=== PATIENT | male | born 1940 | race Caucasian/White ===

== ENCOUNTER 2017-05-11 21:01 | Observation (INO) | payer MEDICARE, OTHER, SELFPAY ==
[2017-05-11 21:02] VITALS: BP 134/78; PULSE 68; RESP 18; TEMP 36.8; O2SAT 93; BMI 25.5
--- NOTE | 2017-05-11 21:29 | EKG12_ITS ---
Test Reason : CP Blood Pressure : / mmHG Vent. Rate : 064 BPM Atrial Rate : 064 BPM P-R Int : 210 ms QRS Dur : 096 ms QT Int : 386 ms P-R-T Axes : 009 -07 038 degrees QTc Int : 398 ms Sinus rhythm with 1st degree A-V block with Premature atrial complexes in a pattern of bigeminy Otherwise normal ECG Confirmed by JEB DAVIS, DEEJAY ([id number]), editor farm journal MIRIAM TALBOT ([id number]) on 05/13/2017 1:27:33 PM Referred By: CHINA/KELLEY Confirmed By:DEEJAY RUSS MD
--- NOTE | 2017-05-11 21:30 | RAD_ITS ---
XR Chest 1 View INDICATION: Pains across upper chest but mostly in left arm. COMPARISON: None FINDINGS: Heart size and pulmonary vascularity are within normal limits. The lungs are clear without evidence of airspace consolidation or pleural effusion. The osseous structures are grossly unremarkable. RAD/Chest 1 View (Portable) IMPRESSION: No radiographic evidence of acute intrathoracic disease. at 2152 Reported and signed by: Emeli Wells MD Electronically Signed: Emeli Wells MD at 20:51 EDT Tel , Service support ,
--- NOTE | 2017-05-11 21:31 | ED.VISSUMM ---
- ER Visit Summary Date of Service: 05/11/17 Chief Complaint: Chest pain History of Present Illness: The patient is a 77 M presents with 2-3 hours of left-sided chest discomfort with radiation to his left shoulder blade, and down his left arm greater than his right arm. Started with light exertion, going down the steps to the basement to put wood in the boiler, and coming back up. However with rest it did not go away although he states over the past 2 hours it has been diminishing. He now just has some discomfort in his left shoulder and that is it, with resolution of the chest discomfort after taking 2 nitroglycerin doses at home. Already took his daily 81 mg aspirin. He had an LAD stent 10-15 years ago and has not had a recent stress test although he has a routine one scheduled for 9 days from today. He states that for the last 3 weeks he has been having bilateral upper chest burning and left shoulder tiredness when he does activity, and he seems to be fatiguing earlier in easier than usual. Physical Examination: Well-appearing in no acute distress. Blood pressure 134/78, 93% on room air, afebrile, not tachycardic. Chest nontender. Breath sounds equal bilaterally, lungs clear to auscultation throughout, heart is regular without a murmur or tachycardia. No JVD, pedal edema, or calf tenderness. Test Results: EKG shows nonspecific ST-T wave abnormalities in 3 and aVF, he has a rate of 64 with first-degree AV block with what is either a sinus arrhythmia or wandering pacemaker, but his relatively low voltage on the rhythm strip makes it difficult to tell. His axis is within normal limits and there is no ST segment elevation or depressions. Troponin negative, labs unremarkable except for elevated BUN at 30. Emergency Department Course and Treatment: Patient had a baby aspirin earlier, he was given another as well as nitroglycerin paste. On reevaluation his shoulder discomfort is gone, and his chest discomfort did not recur. Symptoms are very concerning for unstable angina in the last few weeks which has now become unstable. Discussed with Dr. Persaud for admission to telemetry and further evaluation. Patient is amenable to this. Disposition: Admit telemetry Impression: Chest pain, concern for unstable angina History coronary artery disease This note was generated with [employer] software. It may contain incorrect words, spelling, and punctuation that were not noted in review of the chart prior to signing ED Disposition - Plan for ED Patient: Disposition: Acute Care Hospital [facility] Chief Complaint: Chest Pain Referrals: Charles Agosto MD [Primary Care Provider] -
--- NOTE | 2017-05-11 21:36 | ED.DCSUM_ITS ---
- ER Visit Summary Date of Service: 05/11/17 Chief Complaint: Chest pain History of Present Illness: The patient is a 77 M presents with 2-3 hours of left-sided chest discomfort with radiation to his left shoulder blade, and down his left arm greater than his right arm. Started with light exertion, going down the steps to the basement to put wood in the boiler, and coming back up. However with rest it did not go away although he states over the past 2 hours it has been diminishing. He now just has some discomfort in his left shoulder and that is it, with resolution of the chest discomfort after taking 2 nitroglycerin doses at home. Already took his daily 81 mg aspirin. He had an LAD stent 10-15 years ago and has not had a recent stress test although he has a routine one scheduled for 9 days from today. He states that for the last 3 weeks he has been having bilateral upper chest burning and left shoulder tiredness when he does activity, and he seems to be fatiguing earlier in easier than usual. Physical Examination: Well-appearing in no acute distress. Blood pressure 134/ 78, 93% on room air, afebrile, not tachycardic. Chest nontender. Breath sounds equal bilaterally, lungs clear to auscultation throughout, heart is regular without a murmur or tachycardia. No JVD, pedal edema, or calf tenderness. Test Results: EKG shows nonspecific ST-T wave abnormalities in 3 and aVF, he has a rate of 64 with first-degree AV block with what is either a sinus arrhythmia or wandering pacemaker, but his relatively low voltage on the rhythm strip makes it difficult to tell. His axis is within normal limits and there is no ST segment elevation or depressions. Troponin negative, labs unremarkable except for elevated BUN at 30. Emergency Department Course and Treatment: Patient had a baby aspirin earlier, he was given another as well as nitroglycerin paste. On reevaluation his shoulder discomfort is gone, and his chest discomfort did not recur. Symptoms are very concerning for unstable angina in the last few weeks which has now become unstable. Discussed with Dr. Persaud for admission to telemetry and further evaluation. Patient is amenable to this. Disposition: Admit telemetry Impression: Chest pain, concern for unstable angina History coronary artery disease This note was generated with [employer] software. It may contain incorrect words, spelling, and punctuation that were not noted in review of the chart prior to signing ED Disposition - Plan for ED Patient: Disposition: Acute Care Hospital [facility] Chief Complaint: Chest Pain Referrals: Charles Agosto MD [Primary Care Provider] -
[2017-05-11] MEDS: Aspirin 81 MG TAB.CHEW PO (21:38)
[2017-05-11] MEDS: 0.9% Normal Saline 1,000 ML 150 ML IV (21:38)
[2017-05-11 21:40] VITALS: BP 130/70; PULSE 71
[2017-05-11] MEDS: Nitroglycerin Oint 1 INCH PACKET 0.5 INCH TRANSDERM. (21:40)
[2017-05-11 21:43] LABS: Absolute Lymphocyte Count 2.05 X10^3/ul (0.83-4.51); Basophil# 0.01 X10^3/uL; Basophil% 0.1 % (0-1); Eosinophil# 0.15 X10^3/uL; Eosinophils% 2.2 % (0-5); Hematocrit 39.7 % (40-54); Hemoglobin 13.5 g/dl (13.0-16.5); Lymphocyte # 2.05 X10^3/ul (4.0); Lymphocyte % 29.6 % (19-41); Mean Corpuscular Hgb 28.8 pg (27.0-32.0); Mean Corpuscular Volume 84.8 fL (80-94); Mean Platelet Vol. 10.1 fl (6.2-12.0); Monocyte% 10.1 % (0-10); Neutrophil # 3.99 X10^3/uL (2.7-7.7); Neutrophil % 57.7 % (47-70); Platelet Count 217 K/mm3 (150-450); RBC Distribution Width CV 13.4 % (11.6-14.6); RBC Distribution Width SD 40.7 fl (35.1-43.9); Red Blood Count 4.68 M/mm3 (4.6-6.2); White Blood Count 6.9 K/mm3 (4.4-11.0)
[2017-05-11 21:45] LABS: POSITIVE COUNT NO; POSITIVE DIFFERENTIAL NO; POSITIVE MORPHOLOGY NO
[2017-05-11 21:57] LABS: Partial Thromboplast Time 27.7 Seconds (24.1-36.2)
[2017-05-11 22:17] LABS: Anion Gap 10 (5-15); BUN 30 mg/dL (7-18); BUN/Creat Ratio 23.8 RATIO (10-20); Chloride 106 mmol/L (98-107); Creatinine, Serum 1.26 mg/dL (0.70-1.30); EST Glomerular Filtration Rate 59 mL/min (>60); Est Glom Filt Rate - Afr Amer 72 mL/min (>60); Estimated Creatinine Clearance 60.54 ml/min; Glucose 178 mg/dL (74-106); Sodium Level 144 mmol/L (136-145)
[2017-05-11 22:21] VITALS: BP 122/69; PULSE 65; RESP 16; O2SAT 96
[2017-05-11 22:35] VITALS: BP 127/91; PULSE 68; RESP 19; O2SAT 96
[2017-05-11 23:23] VITALS: BP 130/69; PULSE 61; RESP 18; O2SAT 97
--- NOTE | 2017-05-11 23:39 | PCM.HP.STD ---
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 Pt c/o generalized upper chest discomfort. Pt had several episode of chest pain in the past few days to weeks as well. However this time, he had the chest pressure localized to the left side of his chest, lasting for hours. Pressure came on suddenly as he walked up the stairs. Nothing made it better or worse. No association with any other symptoms. No diaphoresis or palpitation. Pain was initially moderate but improved over the next 2 hours. He was scheduled for a stress test in 1-2 weeks. He gets easily fatigue and had left shoulder tiredness when he does activity. He came to the ED for further workup. Past Medical History Past Medical History (Chronic Problems): Chronic Problems (Last Updated 05/06/17 @ 10:40 by Danay Justice) Presence of stent in coronary artery (Chronic) PTCA of LAD 04/1993; PTCA/DION to prox LAD 05/30/04 Atherosclerotic heart disease of [place] coronary artery without angina pectoris (Chronic) PTCA of LAD 04/1993; PTCA/DION to prox LAD 05/30/04 Hyperlipidemia (Chronic) Type 2 diabetes mellitus (Chronic) Allergies cephalexin Allergy (Severe, Verified 05/11/17 21:05) Hives penicillin G Allergy (Severe, Verified 05/11/17 21:05) Hives ramipril [From Altace] Allergy (Severe, Verified 05/11/17 21:05) Dry Cough Home Medications: Ambulatory Orders Medication Instructions Recorded aspirin 81 mg tablet,delayed 81 mg PO QDAY tab 05/06/17 release clopidogrel 75 mg tablet 75 mg PO QDAY 05/06/17 colchicine 0.6 mg tablet 0.6 mg PO QDAY PRN 05/06/17 fenofibric acid (choline) 135 mg 135 mg PO QDAY 05/06/17 capsule,delayed release finasteride 5 mg tablet 5 mg PO QDAY 05/06/17 melatonin 3 mg tablet 3 mg PO HS PRN 05/06/17 metformin 1,000 mg tablet 1,000 mg PO BID 05/06/17 metoprolol succinate ER 50 mg 50 mg PO QDAY tab 05/06/17 tablet,extended release 24 hr nitroglycerin 400 mcg/spray 1 spray TRANSLINGUAL Q5M PRN 05/06/17 translingual rosuvastatin 10 mg tablet 10 mg PO QDAY 05/06/17 sitagliptin 100 mg tablet 100 mg PO QDAY 05/06/17 Glimepiride [Amaryl] 4 mg PO DAILY 05/11/17 Pantoprazole Sodium 40 mg PO DAILY 05/11/17 Surgical History: - - S/p LAD stent Lives: Spouse/ Significant Other Smoking Status: Former smoker Alcohol: None Drugs: None - *Family History Maternal History Items: No pertinent history Review of Systems Constitutional: Denies: Chills, Fever, Weight Change HEENT: Denies: Head Aches, Sinus Congestion, Sinus Drainage Cardiovascular: Reports: Chest Pain. Denies: Palpitations Respiratory: Denies: Cough, Shortness of breath at rest, Sputum production Gastrointestinal: Denies: Abdominal Pain, Nausea, Vomiting Genitourinary: Denies: Dysuria Musculoskeletal: Denies: Joint Pain, Joint Tenderness Skin: Denies: Rash, Wounds Neurological: Denies: Numbness, Tingling, Focal weakness Psychiatric: Denies: Anxiety, Depression, Homicidal Ideations, Suicidal Ideations Hematologic/ Lymphatic: Denies: Easy Bruising, Easy Bleeding VTE Information - Inpt Only VTE Present on Admission: No VTE Mechan Device Prophylaxis: SCD's VTE Pharm Prophylaxis ordered?: Yes Patient Problems: Active and Suspected Problems (Last Updated 05/06/17 @ 10:40 by Danay Justice) Chest pain (Acute) - Physical Exam General: Alert, Oriented x3, Cooperative HEENT: Atraumatic, PERRLA, EOMI, Normocephalic Neck: Supple, No JVD, Negative Carotid Bruits Lungs: Clear to auscultation, Normal air movement Cardiovascular: Regular rate, No murmurs Abdomen: Bowel Sounds Present, Soft, Non Tender Extremities: No edema, Capillary Refill Less than 3 Seconds Skin: No rashes, No breakdown Musculoskeletal: No Tenderness to Palpation of Joints or Extremities Neurological: Cranial nerves II-XII grossly intact Psych/Mental Status: Normal Affect, Appropriate Vital Signs Temp Pulse Resp BP Pulse Ox 98.2 F 61 18 130/69 H 97 05/11/17 21:02 05/11/17 23:23 05/11/17 23:23 05/11/17 23:23 05/11/17 23:23 Oxygen Flow Rate (L/min) 2 Oxygen Delivery Method Nasal Cannula Weight: 92.8 kg Body Mass Index (BMI) 25.5 Laboratory Tests Past 24 Hrs 05/11/17 05/11/17 05/11/17 21:00 21:00 21:00 WBC 6.9 RBC 4.68 Hgb 13.5 Hct 39.7 L MCV 84.8 MCH 28.8 MCHC 34.0 RDW 13.4 RDW Differential 40.7 Plt Count 217 MPV 10.1 Immature Gran % (Auto) 0.300 Neut % (Auto) 57.7 Lymph % (Auto) 29.6 Kimble % (Auto) 10.1 H Eos % (Auto) 2.2 Baso % (Auto) 0.1 Absolute Neuts (auto) 4.0 Absolute Lymphs (auto) 2.05 Total Counted Not Reportable APTT 27.7 Sodium 144 Potassium 4.0 Chloride 106 Carbon Dioxide 28.0 Anion Gap 10 BUN 30 H Creatinine 1.26 Estim Creat Clear Calc 60.54 Est GFR (MDRD) Af Amer 72 Est GFR (MDRD) Non-Af 59 L BUN/Creatinine Ratio 23.8 H Glucose 178 H Calcium 9.0 Troponin I < 0.02 Assessment/Plan Active and Suspected Problems (Last Updated 05/06/17 @ 10:40 by Danay Justice) Chest pain (Acute) 77 year old male w/ h/o CAD s/p stent, HTN, and DMII admitted for chest pain. 1) Chest pain: Heart score [address]-T wave changes in inferior leads. NO ST elevation or depression. Trops and chest xray negative. Will get serial trops. ECHO and stress test in AM. Will get lipid panel. Resume home meds. 2) HTN: SBP 130s. C/w home meds. Monitor. 3) DMII: Resume home meds. Monitor. 4) Prophylaxis: SCD / heparin.
[2017-05-12] VITALS (14 sets, daily range): BP systolic 113–141; BP diastolic 58–78; PULSE 47–70; RESP 18; TEMP 36.5–36.8; O2SAT 95–98; BMI 24.9
[2017-05-12] MEDS: Clopidogrel Bisulfate 75 MG Tablet PO ×2 (01:19→10:33)
[2017-05-12] MEDS: 0.9% Normal Saline 1,000 ML 100 ML IV (01:21)
[2017-05-12] MEDS: Fenofibrate 145 MG Tablet PO (01:30)
[2017-05-12] MEDS: Atorvastatin Calcium 20 MG Tablet PO (01:30)
[2017-05-12] MEDS: Aspirin E.C. 81 MG Tablet PO (05:32)
[2017-05-12 05:33] LABS: Absolute Lymphocyte Count 1.88 X10^3/ul (0.83-4.51); Absolute Neutrophil Count 3.1 X10^3/uL (2.0-7.7); Basophil# 0.02 X10^3/uL; Basophil% 0.3 % (0-1); Eosinophil# 0.14 X10^3/uL; Eosinophils% 2.4 % (0-5); Hematocrit 37.4 % (40-54); Hemoglobin 12.8 g/dl (13.0-16.5); Lymphocyte # 1.88 X10^3/ul (4.0); Lymphocyte % 32.6 % (19-41); Mean Corp Hgb Conc 34.2 g/gl (32-36); Mean Corpuscular Hgb 28.9 pg (27.0-32.0); Mean Corpuscular Volume 84.4 fL (80-94); Mean Platelet Vol. 9.8 fl (6.2-12.0); Monocyte# 0.57 X10^3/uL; Monocyte% 9.9 % (0-10); Neutrophil # 3.14 X10^3/uL (2.7-7.7); Neutrophil % 54.6 % (47-70); Platelet Count 174 K/mm3 (150-450); RBC Distribution Width CV 13.2 % (11.6-14.6); RBC Distribution Width SD 40.3 fl (35.1-43.9); Red Blood Count 4.43 M/mm3 (4.6-6.2); White Blood Count 5.8 K/mm3 (4.4-11.0)
[2017-05-12 05:40] LABS: POSITIVE COUNT NO; POSITIVE DIFFERENTIAL NO; POSITIVE MORPHOLOGY NO
[2017-05-12 05:51] LABS: ALB/GLOB Ratio 1.2 RATIO (0.9-2.4); AST(SGOT) 19 U/L (15-37); Alanine Aminotransfer ALT/SGPT 31 U/L (16-61); Albumin, Serum 3.5 g/dL (3.2-5.0); Alkaline Phosphatase 19 U/L (45-117); Anion Gap 8 (5-15); BUN 26 mg/dL (7-18); BUN/Creat Ratio 25.5 RATIO (10-20); Calcium,Total 8.3 mg/dL (8.5-10.1); Chloride 108 mmol/L (98-107); Cholesterol 100 mg/dL (200); Creatinine, Serum 1.02 mg/dL (0.70-1.30); EST Glomerular Filtration Rate 76 mL/min (>60); Est Glom Filt Rate - Afr Amer 92 mL/min (>60); Estimated Creatinine Clearance 74.79 ml/min; Globulin 2.9 g/dL (2.2-4.2); Glucose 93 mg/dL (74-106); High Density Lipoprotein 32 mg/dL; Magnesium 1.8 mg/dL (1.6-2.6); Potassium 4.1 mmol/L (3.5-5.1); Protein, Total 6.4 g/dL (6.4-8.2); Sodium Level 141 mmol/L (136-145); Thyroid Stim Hormone (TSH) 3.73 uIU/mL (0.358-3.74); Triglycerides 132 mg/dL; Very Low Density Lipoprotein 26 mg/dL (5-40)
[2017-05-12 05:53] LABS: International Normalized Ratio 1.1; Prothrombin Time (Protime)PT. 14.3 SECONDS (11.7-14.9)
[2017-05-12 05:54] LABS: Partial Thromboplast Time 27.5 Seconds (24.1-36.2)
--- NOTE | 2017-05-12 05:55 | ECHOD_ITS ---
Reason For Study: CHEST PAIN Procedure This was a 2D Doppler, Color Flow transthoracic echocardiogram. Exam performed portable in patient room. Left Ventricle Normal LV size. Left ventricular systolic function is normal. The estimated ejection fraction is 64 %. Transmitral diastolic flow velocities suggest mild (stage 1) diastolic dysfunction (reversed pattern). No regional wall motion abnormalities noted. Right Ventricle Normal RV size. Normal systolic function. Atria Normal left atrium. Normal right atrium. Mitral Valve Normal mitral valve. Tricuspid Valve Normal tricuspid valve. Mild (1+) tricuspid valve insufficiency. Pulmonary artery systolic pressure is 27 mmHg. Aortic Valve Normal aortic valve. Trisinus/trileaflet aortic valve. Pulmonic Valve Normal pulmonic valve. Great Vessels Normal aortic root. The pulmonary artery is normal size. Normal inferior vena cava. Pericardium/Pleural No pericardial effusion. MMode/2D Measurements & Calculations LVIDd: 5.1 cm IVSd: 0.93 cm Ao root diam: 3.9 cm LVIDs: 3.6 cm LVPWd: 1.1 cm LA dimension: 3.7 cm RVDd: 3.4 cm FS: 30.6 % LAV(MOD-sp4): 50.7 ml LA A4 area: 18.4 cm2 RA A4 area: 13.4 cm2 Doppler Measurements & Calculations MV E max yoni: 55.1 cm/sec Ao V2 max: 121.4 cm/sec LV V1 max: 120.7 cm/sec MV A max yoni: 73.8 cm/sec Ao max P.9 mmHg LV V1 max P.8 mmHg MV E/A: 0.75 PA V2 max: 167.0 cm/sec TR max yoni: 235.2 cm/sec TR max P.1 mmHg Interpretation Summary Normal LV size. Left ventricular systolic function is normal. The estimated ejection fraction is 64 %. Transmitral diastolic flow velocities suggest mild (stage 1) diastolic dysfunction (reversed pattern). Mild (1+) tricuspid valve insufficiency. Ordering Physician: Gabriel Persadu Referring Physician: Charles Agosto Performed By: Trena Doran, RDCS, RVT
--- NOTE | 2017-05-12 05:55 | EKG12_ITS ---
Test Reason : AM EKG Blood Pressure : / mmHG Vent. Rate : 058 BPM Atrial Rate : 058 BPM P-R Int : 220 ms QRS Dur : 100 ms QT Int : 436 ms P-R-T Axes : 043 010 045 degrees QTc Int : 428 ms Sinus bradycardia with marked sinus arrhythmia with 1st degree A-V block Otherwise normal ECG When compared with ECG of 11-MAY-2017 21:04, MANUAL COMPARISON REQUIRED, DATA IS UNCONFIRMED Confirmed by JEB DAVIS, DEEJAY ([id number]), managing editor MIRIAM TALBOT ([id number]) on 05/13/2017 1:39:43 PM Referred By: CAROL Confirmed By:DEEJAY RUSS MD
[2017-05-12 07:01] LABS: Bedside Glucose 93 mg/dL (70-110)
--- NOTE | 2017-05-12 08:02 | RAD_ITS ---
STUDY: X-RAY CHEST REASON FOR EXAM: Male, 77 years old. chest pain hx of heart attack TECHNIQUE: Frontal and lateral views of the chest. COMPARISON: None. FINDINGS: The lungs are clear and expanded. There is no demonstrated pleural abnormality. Normal size heart. Normal mediastinum and latesha. Normal visualized pulmonary arteries. Normal visualized aortic arch and descending thoracic aorta. Normal visualized thoracic spine. There is degenerative osteoarthritis of the bilateral shoulders. There is no demonstrated abnormality of the visualized soft tissue structures of the upper abdomen. RAD/Chest PA and Lateral IMPRESSION: Normal x-ray examination of the chest. Electronically Signed: Franco Freed MD at 12:20 EDT Tel , Service support ,
--- NOTE | 2017-05-12 09:48 | STRESSREP_ITS ---
Stress Test Report Exercise myocardial perfusion stress test. 77-year-old man with a history of coronary artery disease and previous stenting. Stress protocol: Resting EKG demonstrates sinus bradycardia with a rate of 61 bpm resting blood pressure is 122/70 mmHg. Patient exercised according to the regular Tyler protocol for total duration of 7 minutes and 30 seconds patient completed 1 minute and 30 seconds to stage III of the Tyler protocol. The maximum heart rate attained was 123 bpm which was 84% of maximum predicted heart rate the maximum workload attained was 9.3 metabolic equivalents. At rest there were no ST or T-wave changes noted suggest ischemia at peak exercise there was approximately [address] depression noted in leads II, III and I 0.[address] depression noted in aVF. 1.[address] depression was noted in V5 and V6. Premature ventricular complexes were noted during exercise. The patient also complained of mild chest discomfort which appeared to dissipate at the termination of exercise. The resting blood pressure is 122/ 70 with a peak blood pressure 142/74 mmHg. Myocardial perfusion protocol. 11.8 mCi of technetium 99m sestamibi was injected at rest. The patient exercised according to regular Tyler protocol for total duration of 7 minutes and 30 seconds attaining 9.3 metabolic equivalents. At peak exercise 35.0 mCi of technetium 99m sestamibi was injected. Stress images were obtained stress and rest images were reconstructed and compared in the short axis vertical long and horizontal long axis. Gated images were also obtained. Perfusion SPECT analysis. Review of the stress images demonstrate a medium-sized defect noted involving the mid to distal anteroseptal and apical briceno. The inferior wall also demonstrates reduced perfusion on the stress images. The resting images demonstrate improvement in the inferior wall as well as the distal anterior septal and apical briceno. The lateral wall appears to well perfused on the stress and resting images. The above pattern is suggestive of anteroseptal ischemia as well as apical ischemia. Previous inferior infarct with ischemia can also not be excluded. Gated SPECT analysis. The gated ejection fraction is noted to be 54%. Conclusion: Abnormal exercise myocardial perfusion stress test with evidence of anterior septal, apical, inferior ischemia. Preserved ejection fraction. Clinical angina noted. Mild functional aerobic impairment.
[2017-05-12] MEDS: Metoprolol(XL)Succ 50 MG Tablet PO (09:55)
[2017-05-12] MEDS: LINAGLIPTIN 5 MG TABLET PO (09:56)
[2017-05-12] MEDS: Finasteride 5 MG Tablet PO (09:56)
[2017-05-12] MEDS: Pantoprazole Sodium 40 MG Tablet PO (09:57)
[2017-05-12] MEDS: 0.9% NaCl Peripheral Flush Adult/Peds IV (10:10)
--- NOTE | 2017-05-12 10:39 | PCM.CONS.C ---
Reason for Consult Date of Consultation: 05/12/17 Reason for Consultation: Chest pressure and abnormal stress test. History of Present Illness: The patient is a 77 year old M with a known history of coronary artery disease status post initial angioplasty in 1993 of the left anterior descending artery and subsequently in 2004 with placement of a 3.5 mm x 20 mm Taxus drug-eluting stent in the left anterior descending artery. He apparently had been doing well but has started experiencing some chest discomfort. He says that this would happen whenever he got on his treadmill. It was a burning sensation and also radiated down the left side of his arm. He presented to the emergency room for evaluation of the above he was admitted to the telemetry unit cardiac enzymes were obtained which were negative and he underwent stress testing today. During the stress testing he developed similar chest discomfort EKG changes were noted and the nuclear images demonstrate evidence of anterior septal and apical ischemia. A previous inferior infarct cannot be completely excluded with mild ischemia. Due to the above cardiovascular service was consulted for further evaluation and management. He has been compliant with his medications and currently is free of any chest pain. [] Past Medical History Allergies/Adverse Reactions: Allergies cephalexin Allergy (Severe, Verified 05/11/17 21:05) Hives penicillin G Allergy (Severe, Verified 05/11/17 21:05) Hives ramipril [From Altace] Allergy (Severe, Verified 05/11/17 21:05) Dry Cough Home Medications: Ambulatory Orders Medication Instructions Recorded aspirin 81 mg tablet,delayed 81 mg PO QDAY tab 05/06/17 release clopidogrel 75 mg tablet 75 mg PO QDAY 05/06/17 colchicine 0.6 mg tablet 0.6 mg PO QDAY PRN 05/06/17 fenofibric acid (choline) 135 mg 135 mg PO QDAY 05/06/17 capsule,delayed release finasteride 5 mg tablet 5 mg PO QDAY 05/06/17 melatonin 3 mg tablet 3 mg PO HS PRN 05/06/17 metformin 1,000 mg tablet 1,000 mg PO BID 05/06/17 metoprolol succinate ER 50 mg 50 mg PO QDAY tab 05/06/17 tablet,extended release 24 hr nitroglycerin 400 mcg/spray 1 spray TRANSLINGUAL Q5M PRN 05/06/17 translingual rosuvastatin 10 mg tablet 10 mg PO QDAY 05/06/17 sitagliptin 100 mg tablet 100 mg PO QDAY 05/06/17 Glimepiride [Amaryl] 4 mg PO DAILY 05/11/17 Pantoprazole Sodium 40 mg PO DAILY 05/11/17 Past Medical History (Chronic Problems): Chronic Problems (Last Updated 05/06/17 @ 10:40 by Danay Justice) Presence of stent in coronary artery (Chronic) PTCA of LAD 04/1993; PTCA/DION to prox LAD 05/30/04 Atherosclerotic heart disease of [place] coronary artery without angina pectoris (Chronic) PTCA of LAD 04/1993; PTCA/DION to prox LAD 05/30/04 Hyperlipidemia (Chronic) Type 2 diabetes mellitus (Chronic) Surgical History: - - S/p LAD stent - *Family History Maternal Family History: Family History (Last Updated 05/06/17 @ 10:41 by Danay Justice) Mother Hypertension Diabetes Sister CAD (coronary artery disease) History Items: No pertinent history Lives: Spouse/ Significant Other Smoking Status: Former smoker Alcohol: None Drugs: None Review of Systems - Review of Systems General: Denies: Fever, Night Sweats, Fatigue Cardiovascular: Reports: Chest Discomfort with Exertion, Chest Tightness. Denies: Chest Discomfort, Shortness of Breath, Orthopnea, PND, Peripheral Edema, Palpitations, Lightheadedness, Dizziness, Near Syncope, Syncope Respiratory: Denies: Cough, Sputum Production, Hemoptysis Gastrointestinal: Denies: Hematemesis, Hematochezia, Melena Genitourinary: Denies: Dysuria, Hematuria Skin: Denies: Rash Subjectve: Pleasant gentleman in no apparent distress. Objective: Vital Signs Temp Pulse Resp BP Pulse Ox 97.7 F L 60 18 118/63 97 05/12/17 09:51 05/12/17 09:55 05/12/17 09:51 05/12/17 09:51 05/12/17 09:51 Oxygen Delivery Method Room Air Weight: 200 lb 9.93 oz Body Mass Index (BMI) 24.9 Intake and Output for Last 24 Hours 05/10/17 05/11/17 05/12/17 23:59 23:59 23:59 Intake Total 458 / 458 Balance 458 / 458 General: Awake, Alert, Oriented x 3 HEENT: PERRL, EOMI, Sclera Non Icteric Neck: Supple, Good ROM, No Lymph Node Enlargement Lungs: Clear to auscultation Cardiovascular: Regular Rhythm, Normal S1, Normal S2, No Murmurs, No Rubs, No Gallops Vascular: No Carotid Bruits, Normal Femoral Pulses, Normal Radial Pulses, Normal Dorsalis Pedal Pulse, Normal Posterior Tibial Pulses Abdomen: Bowel Sounds Present, Soft, Non Tender, No HSM, No Organomegaly Extremities: No Cyanosis, No Clubbing, No edema Neurological: No Focal Motor or Sensory Deficit 05/12/17 01:06: Troponin I < 0.02 05/12/17 05:00: WBC 5.8, RBC 4.43 L, Hgb 12.8 L, Hct 37.4 L, MCV 84.4, MCH 28.9, MCHC 34.2, RDW 13.2, RDW Differential 40.3, Plt Count 174, MPV 9.8, Immature Gran % (Auto) 0.200, Neut % (Auto) 54.6, Lymph % (Auto) 32.6, [place] % (Auto) 9.9, Eos % (Auto) 2.4, Baso % (Auto) 0.3, Absolute Neuts (auto) 3.1, Total Counted Not Reportable 05/12/17 05:00: Sodium 141, Potassium 4.1, Chloride 108 H, Carbon Dioxide 25.0, Anion Gap 8, BUN 26 H, Creatinine 1.02, Est GFR (MDRD) Af Amer 92, Est GFR (MDRD) Non-Af 76, BUN/Creatinine Ratio 25.5 H, Glucose 93, Calcium 8.3 L, Magnesium 1.8, Total Bilirubin 0.60, Troponin I < 0.02, Triglycerides 132, Cholesterol 100, LDL Cholesterol 42, VLDL Cholesterol 26, HDL Cholesterol 32 L 05/12/17 05:00: PT 14.3, INR 1.1, APTT 27.5 Rhythm: EKG: Normal sinus rhythm with no acute changes Assessment/Plan 1. New onset angina and abnormal stress test. He presents with recent onset angina and has demonstrated an abnormal stress test with evidence of ischemia noted in the anteroseptal and apical distribution correlating with his previous LAD stent placement. Does have known coronary artery disease as discussed above. My recommendation at this time will be for us to evaluate him with a cardiac catheterization. The risk benefits and alternatives have been explained to him and his they understand and agreed to proceed. He will remain on the aspirin and the Plavix in the meantime. 2. Hyperlipidemia. His lipid profile does not appear to be terribly bad he remains on his fenofibrate. It is not clear whether he has been taking his Crestor but this will be emphasized. He will continue with his weight loss and diabetes management. Thank you for allowing me to participate in the care of your patient. Please don't hesitate to call if any issues arise
--- NOTE | 2017-05-12 10:45 | CON.PCM_ITS ---
Reason for Consult Date of Consultation: 05/12/17 Reason for Consultation: Chest pressure and abnormal stress test. History of Present Illness: The patient is a 77 year old M with a known history of coronary artery disease status post initial angioplasty in 1993 of the left anterior descending artery and subsequently in 2004 with placement of a 3.5 mm x 20 mm Taxus drug-eluting stent in the left anterior descending artery. He apparently had been doing well but has started experiencing some chest discomfort. He says that this would happen whenever he got on his treadmill. It was a burning sensation and also radiated down the left side of his arm. He presented to the emergency room for evaluation of the above he was admitted to the telemetry unit cardiac enzymes were obtained which were negative and he underwent stress testing today. During the stress testing he developed similar chest discomfort EKG changes were noted and the nuclear images demonstrate evidence of anterior septal and apical ischemia. A previous inferior infarct cannot be completely excluded with mild ischemia. Due to the above cardiovascular service was consulted for further evaluation and management. He has been compliant with his medications and currently is free of any chest pain. [] Past Medical History Allergies/Adverse Reactions: Allergies cephalexin Allergy (Severe, Verified 05/11/17 21:05) Hives penicillin G Allergy (Severe, Verified 05/11/17 21:05) Hives ramipril [From Altace] Allergy (Severe, Verified 05/11/17 21:05) Dry Cough Home Medications: Ambulatory Orders Medication Instructions Recorded aspirin 81 mg tablet,delayed 81 mg PO QDAY tab 05/06/17 release clopidogrel 75 mg tablet 75 mg PO QDAY 05/06/17 colchicine 0.6 mg tablet 0.6 mg PO QDAY PRN 05/06/17 fenofibric acid (choline) 135 mg 135 mg PO QDAY 05/06/17 capsule,delayed release finasteride 5 mg tablet 5 mg PO QDAY 05/06/17 melatonin 3 mg tablet 3 mg PO HS PRN 05/06/17 metformin 1,000 mg tablet 1,000 mg PO BID 05/06/17 metoprolol succinate ER 50 mg 50 mg PO QDAY tab 05/06/17 tablet,extended release 24 hr nitroglycerin 400 mcg/spray 1 spray TRANSLINGUAL Q5M PRN 05/06/17 translingual rosuvastatin 10 mg tablet 10 mg PO QDAY 05/06/17 sitagliptin 100 mg tablet 100 mg PO QDAY 05/06/17 Glimepiride [Amaryl] 4 mg PO DAILY 05/11/17 Pantoprazole Sodium 40 mg PO DAILY 05/11/17 Past Medical History (Chronic Problems): Chronic Problems (Last Updated 05/06/17 @ 10:40 by Danay Justice) Presence of stent in coronary artery (Chronic) PTCA of LAD 04/1993; PTCA/DION to prox LAD 05/30/04 Atherosclerotic heart disease of [place] coronary artery without angina pectoris (Chronic) PTCA of LAD 04/1993; PTCA/DION to prox LAD 05/30/04 Hyperlipidemia (Chronic) Type 2 diabetes mellitus (Chronic) Surgical History: - - S/p LAD stent - *Family History Maternal Family History: Family History (Last Updated 05/06/17 @ 10:41 by Danay Justice) Mother Hypertension Diabetes Sister CAD (coronary artery disease) History Items: No pertinent history Lives: Spouse/ Significant Other Smoking Status: Former smoker Alcohol: None Drugs: None Review of Systems - Review of Systems General: Denies: Fever, Night Sweats, Fatigue Cardiovascular: Reports: Chest Discomfort with Exertion, Chest Tightness. Denies: Chest Discomfort, Shortness of Breath, Orthopnea, PND, Peripheral Edema , Palpitations, Lightheadedness, Dizziness, Near Syncope, Syncope Respiratory: Denies: Cough, Sputum Production, Hemoptysis Gastrointestinal: Denies: Hematemesis, Hematochezia, Melena Genitourinary: Denies: Dysuria, Hematuria Skin: Denies: Rash Subjectve: Pleasant gentleman in no apparent distress. Objective: Vital Signs Temp Pulse Resp BP Pulse Ox 97.7 F L 60 18 118/63 97 05/12/17 09:51 05/12/17 09:55 05/12/17 09:51 05/12/17 09:51 05/12/17 09:51 Oxygen Delivery Method Room Air Weight: 200 lb 9.93 oz Body Mass Index (BMI) 24.9 Intake and Output for Last 24 Hours 05/10/17 05/11/17 05/12/17 23:59 23:59 23:59 Intake Total 458 / 458 Balance 458 / 458 General: Awake, Alert, Oriented x 3 HEENT: PERRL, EOMI, Sclera Non Icteric Neck: Supple, Good ROM, No Lymph Node Enlargement Lungs: Clear to auscultation Cardiovascular: Regular Rhythm, Normal S1, Normal S2, No Murmurs, No Rubs, No Gallops Vascular: No Carotid Bruits, Normal Femoral Pulses, Normal Radial Pulses, Normal Dorsalis Pedal Pulse, Normal Posterior Tibial Pulses Abdomen: Bowel Sounds Present, Soft, Non Tender, No HSM, No Organomegaly Extremities: No Cyanosis, No Clubbing, No edema Neurological: No Focal Motor or Sensory Deficit 05/12/17 01:06: Troponin I < 0.02 05/12/17 05:00: WBC 5.8, RBC 4.43 L, Hgb 12.8 L, Hct 37.4 L, MCV 84.4, MCH 28.9 , MCHC 34.2, RDW 13.2, RDW Differential 40.3, Plt Count 174, MPV 9.8, Immature Gran % (Auto) 0.200, Neut % (Auto) 54.6, Lymph % (Auto) 32.6, [place] % (Auto) 9.9 , Eos % (Auto) 2.4, Baso % (Auto) 0.3, Absolute Neuts (auto) 3.1, Total Counted Not Reportable 05/12/17 05:00: Sodium 141, Potassium 4.1, Chloride 108 H, Carbon Dioxide 25.0, Anion Gap 8, BUN 26 H, Creatinine 1.02, Est GFR (MDRD) Af Amer 92, Est GFR (MDRD ) Non-Af 76, BUN/Creatinine Ratio 25.5 H, Glucose 93, Calcium 8.3 L, Magnesium 1.8, Total Bilirubin 0.60, Troponin I < 0.02, Triglycerides 132, Cholesterol 100 , LDL Cholesterol 42, VLDL Cholesterol 26, HDL Cholesterol 32 L 05/12/17 05:00: PT 14.3, INR 1.1, APTT 27.5 Rhythm: EKG: Normal sinus rhythm with no acute changes Assessment/Plan 1. New onset angina and abnormal stress test. He presents with recent onset angina and has demonstrated an abnormal stress test with evidence of ischemia noted in the anteroseptal and apical distribution correlating with his previous LAD stent placement. Does have known coronary artery disease as discussed above. My recommendation at this time will be for us to evaluate him with a cardiac catheterization. The risk benefits and alternatives have been explained to him and his they understand and agreed to proceed. He will remain on the aspirin and the Plavix in the meantime. 2. Hyperlipidemia. His lipid profile does not appear to be terribly bad he remains on his fenofibrate. It is not clear whether he has been taking his Crestor but this will be emphasized. He will continue with his weight loss and diabetes management. Thank you for allowing me to participate in the care of your patient. Please don't hesitate to call if any issues arise
[2017-05-12 12:05] LABS: Bedside Glucose 146 mg/dL (70-110)
--- NOTE | 2017-05-12 12:55 | PCM.PN.BLA ---
Progress Note Patient seen and evaluated and underwent a cardiac catheterization today which demonstrated the following: Left main coronary artery which is normal. Left anterior descending artery with proximal 70% stenosis prior to a previously placed stent with 40-50% in-stent stenosis. Mid left anterior descending artery which appears to be subtotally occluded and distal left anterior descending artery with 90% stenosis. Left circumflex artery with severe proximal 70-80% diffuse disease prior to trifurcation. Dominant right coronary artery with 50-60% mid stenosis. Distal 70-80% posterior descending artery stenosis. Preserved left ventricular systolic function. In view of the fact that the patient is a diabetic with triple-vessel disease I would recommend coronary artery bypass surgery. Arrangements will be made to transfer the patient.
--- NOTE | 2017-05-12 13:06 | CL.D_ITS ---
Patient Name: ROBERTO POWELL Study Date: 05/12/2017 Performing: Beny Bansal MD Ht: 75 inches 191 cm : 1940 Wt: 200.9 lbs 91 kg Age: 77 Gender: male BSA: 2.2 PROCEDURE(S) PERFORMED [id number] CLINICAL PROFILE AND INDICATIONS INDICATIONS: Suspected CAD HEART FAILURE: None Stress/Imaging Stress Test w/SPECT MPI: Yes Result: Positive Intermediate RiskStress Test with SP ECT MPI: Positive Intermediate Risk Angina Classification Anginal Classification w/in 2 Weeks: CCS II CAD Presentations: Unstable angina. CONCLUSIONS Severe two-vessel disease involving the proximal left anterior descending artery, proximal circumflex artery, mid left anterior descending artery, and moderate disease of the mid right coronary artery. RECOMMENDATIONS Surgery consult for coronary revascularization DESCRIPTION OF PROCEDURE The patient arrived to the procedure lab. The risks and benefits of the procedure as well as a full d escription of our services here and current unavailability of surgical backup were fully explained to the patient and/or their significant other prior to the catheterization. The Timeout was completed, verifying the correct patient and procedure. The patient's procedural site was prepped and draped in the usual fashion. Local anesthetic was given subcutaneously to right radial region with Lidocaine 2% . Using a modified Seldinger technique, arterial access was obtained via the right radial artery, a 6 Fr sheath was inserted. Left Coronary Artery selective angiography was performed in multiple views u sing a 5 Fr. 4.0 [place] catheter. Right Coronary Artery selective angiography was then performed in mu ltiple views using a 5 Fr. 4.0 [place] catheter. Left Ventriculography was performed in MENA projection using a 5 Fr. [place] catheter. LV to AO pullback pressures were then recorded.The arterial sheath wa s pulled and a TR Band was applied for hemostasis w/ 18ml air CORONARY ANGIOGRAPHY DOMINANCE: Right Dominant LEFT HEART ASSESSMENT Left Ventricular Ejection Fraction: by LV Gram 60 % Normal LV wall motion Normal Left Ventricular systolic function LEFT MAIN: Angiographically normal LEFT ANTERIOR DECENDING ARTERY: PROX LAD: 70 long % Stenosis, Previously placed stent has an instent 40 % restenosis MID LAD: Diffusely diseased up to 95 % DISTAL LAD: 90 % Stenosis CIRCUMFLEX ARTERY: PROX CIRC: Diffusely diseased up to 80% prior to the bifurcation of 2 obtuse marginal branches and an AV groove branch RIGHT CORONARY ARTERY: MID RCA: 60 % Stenosis COMPLICATIONS No Complications PROCEDURE MEDICATIONS Fentanyl 50 mcg IV Versed 1 mg IV Oxygen: 2 L/min via nasal cannula Heparin diluted in 23cc Heparinized saline. Patient given 10cc IA of this solution. 05/12/2017 12:13:2 0 Verapamil 2.5mg, Ntg 100mcgs, 2000 units of Heparin diluted in 23cc Heparinized saline. Patient give n 10cc IA of this solution. 05/12/2017 12:13:20 SUMMARY OF HEMODYNAMIC DATA Time AIR REST ECG 11:40:10 AO 101/62 (80) SA 12:14:50 LV 117/4, 10 12:23:50 LV 114/5, 11 12:23:57 LV 118/5, 16 12:25:31 LVp 119/3, 15 12:25:35 AOp 130/61 (89) 12:25:40 Signed By Beny Bansal MD On 05/12/2017 13:05:18 Beny Bansal MD
[2017-05-12] MEDS: metFORMIN HCl 1,000 MG Tablet 1000 MG PO (14:21)
[2017-05-12] MEDS: Glimepiride 4 MG Tablet PO (14:21)
--- NOTE | 2017-05-13 08:52 | PCM.DC.SUM ---
Discharge Date and Diagnosis Date of Admission: 05/11/17 Date of Discharge: 05/12/17 - Secondary Discharge Diagnosis Chronic Problems (Last Updated 05/06/17 @ 10:40 by Danay Justice) Presence of stent in coronary artery (Chronic) PTCA of LAD 04/1993; PTCA/DION to prox LAD 05/30/04 Atherosclerotic heart disease of [place] coronary artery without angina pectoris (Chronic) PTCA of LAD 04/1993; PTCA/DION to prox LAD 05/30/04 Hyperlipidemia (Chronic) Type 2 diabetes mellitus (Chronic) Hospital Course and Treatment Summary of Care Provided: The patient is a 77 year old M who presented with chest pain and rule out acute coronary syndrome with negative cardiac enzymes. He underwent a stress test that was positive for ischemia cardiology was consulted and Dr. Bansal performed a diagnostic left heart catheterization revealed triple-vessel disease. Was then transferred to [facility] for possible CABG. He was transferred in a stable condition. Discharge Diet: No Restrictions Home Medications: Medications to take at Discharge aspirin 81 mg tablet,delayed release 81 mg PO QDAY tab 05/06/17 clopidogrel 75 mg tablet 75 mg PO QDAY 05/06/17 colchicine 0.6 mg tablet 0.6 mg PO QDAY PRN 05/06/17 fenofibric acid (choline) 135 mg capsule,delayed release 135 mg PO QDAY 05/06/17 finasteride 5 mg tablet 5 mg PO QDAY 05/06/17 melatonin 3 mg tablet 3 mg PO HS PRN 05/06/17 metformin 1,000 mg tablet 1,000 mg PO BID 05/06/17 metoprolol succinate ER 50 mg tablet,extended release 24 hr 50 mg PO QDAY tab 05/06/17 nitroglycerin 400 mcg/spray translingual 1 spray TRANSLINGUAL Q5M PRN 05/06/17 rosuvastatin 10 mg tablet 10 mg PO QDAY 05/06/17 sitagliptin 100 mg tablet 100 mg PO QDAY 05/06/17 Glimepiride [Amaryl] 4 mg PO DAILY 05/11/17 Pantoprazole Sodium 40 mg PO DAILY 05/11/17 Primary Care Physician: Charles Agosto MD [Primary Care Provider] - Medical Necessity - Tobacco Use Smoking Status: Former smoker Meaningful Use Info Meaningful Use Diagnoses (Choose all that apply): None applicable Code Visit OBSV E&M: 73721 Observation care discharge
--- NOTE | 2017-05-13 08:55 | DS.PCM_ITS ---
Discharge Date and Diagnosis Date of Admission: 05/11/17 Date of Discharge: 05/12/17 - Secondary Discharge Diagnosis Chronic Problems (Last Updated 05/06/17 @ 10:40 by Danay Justice) Presence of stent in coronary artery (Chronic) PTCA of LAD 04/1993; PTCA/DION to prox LAD 05/30/04 Atherosclerotic heart disease of [place] coronary artery without angina pectoris (Chronic) PTCA of LAD 04/1993; PTCA/DION to prox LAD 05/30/04 Hyperlipidemia (Chronic) Type 2 diabetes mellitus (Chronic) Hospital Course and Treatment Summary of Care Provided: The patient is a 77 year old M who presented with chest pain and rule out acute coronary syndrome with negative cardiac enzymes. He underwent a stress test that was positive for ischemia cardiology was consulted and Dr. Bansal performed a diagnostic left heart catheterization revealed triple-vessel disease. Was then transferred to [facility] for possible CABG. He was transferred in a stable condition. Discharge Diet: No Restrictions Home Medications: Medications to take at Discharge aspirin 81 mg tablet,delayed release 81 mg PO QDAY tab 05/06/17 clopidogrel 75 mg tablet 75 mg PO QDAY 05/06/17 colchicine 0.6 mg tablet 0.6 mg PO QDAY PRN 05/06/17 fenofibric acid (choline) 135 mg capsule,delayed release 135 mg PO QDAY finasteride 5 mg tablet 5 mg PO QDAY 05/06/17 melatonin 3 mg tablet 3 mg PO HS PRN 05/06/17 metformin 1,000 mg tablet 1,000 mg PO BID 05/06/17 metoprolol succinate ER 50 mg tablet,extended release 24 hr 50 mg PO QDAY tab 05/06/17 nitroglycerin 400 mcg/spray translingual 1 spray TRANSLINGUAL Q5M PRN 05/06/17 rosuvastatin 10 mg tablet 10 mg PO QDAY 05/06/17 sitagliptin 100 mg tablet 100 mg PO QDAY 05/06/17 Glimepiride [Amaryl] 4 mg PO DAILY 05/11/17 Pantoprazole Sodium 40 mg PO DAILY 05/11/17 Primary Care Physician: Charles Agosto MD [Primary Care Provider] - Medical Necessity - Tobacco Use Smoking Status: Former smoker Meaningful Use Info Meaningful Use Diagnoses (Choose all that apply): None applicable Code Visit OBSV E&M: 36806 Observation care discharge
== END 2017-05-12 17:05 | disposition short-term general hospital (02) ==
LOC: ED 22:54 → PCU 23:38
PROVIDERS: Admitting Provider Internal Medicine; Emergency Provider Emergency Medicine; Family Provider Family Medicine; PCP Family Medicine; Visit Provider Internal Medicine
DX: I25.10 Atherosclerotic heart disease of native coronary artery without angina pectoris (principal); R94.39 Abnormal result of other cardiovascular function study; E11.9 Type 2 diabetes mellitus without complications; E78.5 Hyperlipidemia, unspecified; I25.2 Old myocardial infarction; Z79.899 Other long term (current) drug therapy; Z79.02 Long term (current) use of antithrombotics/antiplatelets; Z79.84 Long term (current) use of oral hypoglycemic drugs; Z79.82 Long term (current) use of aspirin; Z95.5 Presence of coronary angioplasty implant and graft; Z87.891 Personal history of nicotine dependence
CPT/HCPCS: 36415; 71045; 71046; 78452; 80048; 80053; 80061; 82962; 83735; 84443; 84484; 85025; 85610; 85730; 90471; 93005; 93017; 93306; 93458; 96360; 96361; 99152; 99153; 99218; 99285; A9500; J3010; J7030; Q9967; A4216; C1769; C1894; G0378; J2785

== ENCOUNTER 2017-06-08 09:39 | Emergency (ER) | payer MEDICARE, OTHER, SELFPAY ==
[2017-06-08 09:40] VITALS: BP 136/87; PULSE 87; RESP 18; TEMP 36.3; O2SAT 97; BMI 22.7
--- NOTE | 2017-06-08 09:57 | ED.VISSUMM ---
- ER Visit Summary Date of Service: 06/08/17 Chief Complaint: [] Unable to void urine since last night History of Present Illness: The patient is a 77 M [] history of recent CABG [address] [facility], he reports that since that procedure he had a Ordaz catheter in place removed 2 days postop did not go home with it, he has had intermittent urinary retention, he is status post prostate procedure 10 years ago for BPH he has intermittent urinary retention but now it is persisted and has been quite troubling to him since his surgery. His surgical status is stable he has had no fever no cough no chest pain the sternal incision is healing well he simply reports this morning he could not void he felt persistent pressure to void and he came in for evaluation he is stooling normally he has had no fever no cough no chest pain or shortness of breath Physical Examination: [] He is resting comfortably in no distress he prefers to walk his sternal incision is intact with no signs of infection his lungs are clear heart tones are normal abdomen soft nontender there is some pressure over the bladder upper lower extremities unremarkable again is walking around the room complain that he needs to void he wants a Ordaz catheter placed Test Results: [] Emergency Department Course and Treatment: [] Time Ordaz catheter will be placed screening labs urine urine culture, he does report he believes he placed on Flomax 1 week ago but it has not helped Catheter placed productive of 600 cc clear yellow urine, labs and UA generally unremarkable urine culture sent he is feeling much better discussed all the above with him discussed removing the catheter versus sending him home with catheter having follow-up with his urologist, he went to catheter in he will be started on Cipro for 3 days have explained to him the risk of infection the need to see urology in the next few days for further management return for change in symptoms he understands all the above and agrees and wants to go home he was also instructed on the use of a Ordaz leg bag and the need to make sure that the urine never refluxes back into his bladder, he understands Treatment Plan: [] Disposition: [] Home stable Impression: [] Acute urinary retention, status post CABG This note was generated with Birdboxation software. It may contain incorrect words, spelling, and punctuation that were not noted in review of the chart prior to signing ED Disposition - Plan for ED Patient: Chief Complaint: Complaint Referrals: Agosto,Charles, MD [Primary Care Provider] -
--- NOTE | 2017-06-08 10:00 | NURSING ---
NO LW OR POA
[2017-06-08 10:06] LABS: Absolute Lymphocyte Count 1.26 X10^3/ul (0.83-4.51); Absolute Neutrophil Count 4.2 X10^3/uL (2.0-7.7); Basophil# 0.03 X10^3/uL; Basophil% 0.5 % (0-1); Eosinophils% 3.2 % (0-5); Hematocrit 35.4 % (40-54); Hemoglobin 11.9 g/dl (13.0-16.5); Lymphocyte # 1.26 X10^3/ul (4.0); Lymphocyte % 20.3 % (19-41); Mean Corp Hgb Conc 33.6 g/gl (32-36); Mean Corpuscular Hgb 28.7 pg (27.0-32.0); Mean Corpuscular Volume 85.5 fL (80-94); Mean Platelet Vol. 8.6 fl (6.2-12.0); Monocyte# 0.48 X10^3/uL; Monocyte% 7.7 % (0-10); Neutrophil # 4.23 X10^3/uL (2.7-7.7); Neutrophil % 68.1 % (47-70); POSITIVE COUNT NO; POSITIVE DIFFERENTIAL NO; POSITIVE MORPHOLOGY NO; Platelet Count 408 K/mm3 (150-450); RBC Distribution Width CV 13.5 % (11.6-14.6); RBC Distribution Width SD 41.3 fl (35.1-43.9); Red Blood Count 4.14 M/mm3 (4.6-6.2); White Blood Count 6.2 K/mm3 (4.4-11.0)
[2017-06-08 10:20] LABS: Bacteria 0 SEEN /hpf (None Seen); Mucous, Urine 0 SEEN /hpf (<or=2+); Red Blood Cells-Urine 0 SEEN /hpf (0-5); Squamous Epithelial Cells - UA 0 SEEN /hpf (0-5); White Blood Cells 0 SEEN /hpf (0-5)
[2017-06-08 10:21] LABS: Color, Urine Yellow (Yellow); Glucose, Dipstick 250 mg/dl (Normal); Ketone-Dipstick Negative (Negative); Leukocyte Esterase-Dipstick Negative /ul (Negative); Nitrite-Dipstick Negative (Negative); Occult Blood-Urine 10 /ul (Negative); Protein-Dipstick Negative (Negative); Specific Gravity, Urine 1.015 (1.002-1.030); Urine Bilirubin Dipstick Negative (Negative); Urine Clarity Clear (Clear); Urine Urobilinogen Normal (Normal)
[2017-06-08 10:26] LABS: Anion Gap 6 (5-15); BUN 24 mg/dL (7-18); BUN/Creat Ratio 25.4 RATIO (10-20); Chloride 105 mmol/L (98-107); Creatinine, Serum 0.94 mg/dL (0.70-1.30); EST Glomerular Filtration Rate 83 mL/min (>60); Est Glom Filt Rate - Afr Amer 100 mL/min (>60); Estimated Creatinine Clearance 79.29 ml/min; Glucose 170 mg/dL (74-106); Sodium Level 137 mmol/L (136-145)
--- NOTE | 2017-06-08 11:26 | ED.DEP ---
ED Disposition - Plan for ED Patient: Chief Complaint: Complaint Instructions: ED Retention Urinary Male Prescriptions: Ciprofloxacin [Cipro] 500 mg PO BID #6 tab Referrals: Charles Agosto MD [Primary Care Provider] - Ricardo López MD [STAFF PHYSICIAN] -
[2017-06-08] MEDS: Ciprofloxacin 500 MG Tablet PO (11:50)
[2017-06-08 11:57] VITALS: BP 130/89; PULSE 82; RESP 16; O2SAT 98
== END 2017-06-08 11:57 | disposition home or self-care (01) ==
PROVIDERS: Emergency Provider Emergency Medicine; Family Provider Family Medicine; PCP Family Medicine
DX: R33.9 Retention of urine, unspecified (principal); Z95.1 Presence of aortocoronary bypass graft; Z87.438 Personal history of other diseases of male genital organs; Z79.82 Long term (current) use of aspirin; Z79.84 Long term (current) use of oral hypoglycemic drugs; Z79.899 Other long term (current) drug therapy
CPT/HCPCS: 51702; 80048; 81001; 85025; 87086; 99284; J7040; A4216

== ENCOUNTER → 2018-08-25 | Outpatient (CLI) | payer MEDICARE, OTHER, SELFPAY ==
[2018-06-30 14:03] VITALS: BMI 25.1
== END | disposition home or self-care (01) ==
LOC: LAB 10:48
PROVIDERS: Family Provider Family Medicine; PCP Family Medicine; Referring Provider Urology; Visit Provider Urology
DX: Z12.5 Encounter for screening for malignant neoplasm of prostate (principal)
CPT/HCPCS: 36415; 84153; G0103

== ENCOUNTER → 2018-11-06 13:55 | Outpatient (CLI) | payer MEDICARE, OTHER, SELFPAY ==
[2018-06-30 14:03] VITALS: BMI 25.1
[2018-11-06 15:45] LABS: Anion Gap 7 (5-15); BUN 26 mg/dL (7-18); BUN/Creat Ratio 21.7 RATIO (10-20); Calcium,Total 9.4 mg/dL (8.5-10.1); Chloride 105 mmol/L (98-107); Cholesterol 119 mg/dL (200); EST Glomerular Filtration Rate 63 mL/min (>60); Est Glom Filt Rate - Afr Amer 76 mL/min (>60); Glucose 102 mg/dL (74-106); High Density Lipoprotein 43 mg/dL; Potassium 4.4 mmol/L (3.5-5.1); Sodium Level 139 mmol/L (136-145); Triglycerides 97 mg/dL; Very Low Density Lipoprotein 19 mg/dL (5-40)
== END ==
PROVIDERS: Family Provider Family Medicine; PCP Family Medicine; Referring Provider Family Medicine; Visit Provider Family Medicine
DX: E11.9 Type 2 diabetes mellitus without complications (principal)
CPT/HCPCS: 36415; 80048; 80061

== ENCOUNTER → 2019-05-05 09:22 | Outpatient (CLI) | payer MEDICARE, OTHER, SELFPAY ==
[2019-01-25 11:24] VITALS: BMI 25.4
[2019-05-05 10:45] LABS: Anion Gap 8 (5-15); BUN 23 mg/dL (7-18); BUN/Creat Ratio 21.5 RATIO (10-20); Calcium,Total 9.1 mg/dL (8.5-10.1); Chloride 104 mmol/L (98-107); Cholesterol 137 mg/dL (200); Creatinine, Serum 1.07 mg/dL (0.70-1.30); EST Glomerular Filtration Rate 71 mL/min (>60); Est Glom Filt Rate - Afr Amer 86 mL/min (>60); Glucose 146 mg/dL (74-106); High Density Lipoprotein 38 mg/dL; Potassium 4.1 mmol/L (3.5-5.1); Sodium Level 140 mmol/L (136-145); Triglycerides 174 mg/dL; Very Low Density Lipoprotein 35 mg/dL (5-40)
== END ==
PROVIDERS: PCP Family Medicine; Referring Provider Family Medicine; Visit Provider Family Medicine
DX: E78.5 Hyperlipidemia, unspecified (principal); E11.9 Type 2 diabetes mellitus without complications
CPT/HCPCS: 36415; 80048; 80061

== ENCOUNTER 2019-09-01 10:21 | Inpatient (IN) | payer MEDICARE, OTHER, SELFPAY ==
[2019-07-28 09:00] VITALS: BMI 25.3
[2019-09-01] VITALS (11 sets, daily range): BP systolic 114–176; BP diastolic 64–90; PULSE 55–85; RESP 13–20; TEMP 36.2–36.9; O2SAT 93–97; BMI 25.8; BMI 25.0
--- NOTE | 2019-09-01 10:23 | EKG12_ITS ---
Test Reason : CP Blood Pressure : / mmHG Vent. Rate : 074 BPM Atrial Rate : 074 BPM P-R Int : 204 ms QRS Dur : 086 ms QT Int : 424 ms P-R-T Axes : 037 -02 054 degrees QTc Int : 470 ms Normal sinus rhythm Normal ECG Confirmed by JIGAR TURNER ([id number]), writer editor MIRIAM TALBOT ([id number] on 09/06/2019 12:03:12 PM Referred By: Confirmed By:JIGAR TURNER
--- NOTE | 2019-09-01 10:28 | ED.DCSUM_ITS ---
- ER Visit Summary Date of Service: 09/01/19 Chief Complaint: Chest pain History of Present Illness: The patient is a 79 M presenting with chest pain. Patient states this started 1.5 hours prior to arrival. He states pain is midsternal and bilateral chest pain. He denies nausea, vomiting, diaphoresis, or shortness of breath. He states this feels similar to before his first heart catheterization and before his CABG. He took 3 nitro prior to arrival with improvement of his pain. Denies fever or sick contacts. Denies recent travel. Physical Examination: Vitals are stable. Patient is afebrile. Alert no acute distress. HEENT exam is unremarkable. Neck is supple. Lungs are clear and equal bilaterally. Heart is regular rate and rhythm. Abdomen is soft nontender nondistended. Extremities are unremarkable. Skin is warm and dry. No focal neurologic deficit. Remainder of exam is unremarkable. Emergency Department Course and Treatment: Patient was given aspirin on arrival. EKG is sinus rate of 74 with no acute ischemic changes. CBC normal except hemoglobin 12.9. Chemistries normal except BUN 28, glucose 301. Troponin is negative. Chest x-ray shows no acute process. On reevaluation patient is chest pain-free. Discussed with the hospitalist for observation. Disposition: Observation Impression: Chest pain This note was generated with [employer] dictation software. It may contain incorrect words, spelling, and punctuation that were not noted in review of the chart prior to signing ED Disposition - Plan for ED Patient: Referrals: Charles Agosto MD [Primary Care Provider] -
[2019-09-01 10:35] LABS: Basophil# 0.03 X10^3/uL; Basophil% 0.6 % (0-1); Eosinophil# 0.22 X10^3/uL; Eosinophils% 4.1 % (0-5); Hemoglobin 12.9 g/dL (13.0-16.5); Lymphocyte % 31.4 % (19-41); Mean Corp Hgb Conc 34.9 g/dL (32-36); Mean Platelet Vol. 10.3 fl (6.2-12.0); Monocyte# 0.49 X10^3/uL; Monocyte% 9.1 % (0-10); NRBC Flagged by Analyzer 0 % (0-5); Neutrophil # 2.96 X10^3/uL (2.7-7.7); Neutrophil % 54.6 % (47-70); Platelet Count 166 K/mm3 (150-450); RBC Distribution Width CV 13.3 % (11.6-14.6); White Blood Count 5.4 K/mm3 (4.4-11.0)
[2019-09-01] MEDS: Aspirin 81 MG TAB.CHEW 324 MG PO (10:42)
--- NOTE | 2019-09-01 10:48 | RAD_ITS ---
STUDY: X-RAY CHEST REASON FOR EXAM: Male, 79 years old. Chest pain across upper chest started this morning. Hx of a quad bypass. TECHNIQUE: Single AP portable view of the chest. COMPARISON: 05/12/2017 FINDINGS: EKG leads overlie the chest There are interstitial fibrotic changes of the lungs. There is no demonstrated pleural abnormality. Sternal cerclage wires and vascular clips are present from a prior sternotomy and coronary artery bypass graft procedure (CABG). Normal mediastinum and latesha. Normal visualized pulmonary arteries. Normal visualized aortic arch and descending thoracic aorta. Normal visualized thoracic spine. Normal visualized ribs, clavicles, and shoulders. There is no demonstrated abnormality of the visualized soft tissue structures of the upper abdomen. RAD/Chest 1 View (Portable) IMPRESSION: Degenerative changes, as described above. No demonstrated acute cardiopulmonary process. Electronically Signed: Benjy Batista MD at 11:15 EDT , Service support ,
[2019-09-01 10:51] LABS: Anion Gap 5 (5-15); BUN 28 mg/dL (7-18); Calcium,Total 8.7 mg/dL (8.5-10.1); Chloride 105 mmol/L (98-107); Creatinine, Serum 1.12 mg/dL (0.70-1.30); EST Glomerular Filtration Rate 68 mL/min (>60); Est Glom Filt Rate - Afr Amer 82 mL/min (>60); Estimated Creatinine Clearance 66.02 ml/min; Glucose 301 mg/dL (74-106); Potassium 4.1 mmol/L (3.5-5.1); Sodium Level 136 mmol/L (136-145)
--- NOTE | 2019-09-01 11:32 | NURSING ---
DR DEDRA WOOD
--- NOTE | 2019-09-01 11:35 | NURSING ---
PCU OBS TATUM COLMENARES
--- NOTE | 2019-09-01 11:45 | HP.PCM_ITS ---
Problem List (1) Aortocoronary bypass status Status: Chronic Comment: CABG x4-QUINN to LAD, SVG to high diagonal branch, SVG to Ramus Intermedius, SVG to the right post lateral branch 05/20/17 (2) Presence of stent in coronary artery Status: Chronic Comment: PTCA of LAD 04/1993; PTCA/DION to prox LAD 05/30/04 (3) Atherosclerotic heart disease of [place] coronary artery without angina pectoris Status: Chronic Qualifiers: Comment: PTCA of LAD 04/1993; PTCA/DION to prox LAD 05/30/04 (4) Hyperlipidemia Status: Chronic Qualifiers: (5) Type 2 diabetes mellitus Status: Chronic History of Present Illness Date of Admission: 09/01/19 Chief Complaint: Chest pain. The patient is a 79 year old M with past medical history as mentioned above presented to the emergency room because of chest pain. Patient stated that he woke up this morning and shortly after, he started having chest pain, it is midsternal as well as on both sides of the chest, dull aching pain, 6 out of 10 in severity, not radiating, patient's mentioned that he was short of breath at that time and there was no aggravating or relieving factors. Patient denied sweating, nausea or vomiting. He denies syncope or presyncope. Patient has history of CAD status post CABG back on May,. He was seen 2 weeks ago by cardiology and he was doing fine. In the emergency department, his vital signs were stable. His routine blood work was unremarkable. EKG revealed normal sinus rhythm, normal MT interval, normal QRS, normal QTC, no acute segment changes. Troponin was negative. Chest x-ray showed no acute findings. He is being admitted for atypical chest pain for evaluation. Past Medical History Past Medical History (Chronic Problems): Chronic Problems (Last Updated 09/01/19 @ 11:[address] Filomena Avina MD) Aortocoronary bypass status (Chronic ~05/20/17) CABG x4-QUINN to LAD, SVG to high diagonal branch, SVG to Ramus Intermedius, SVG to the right post lateral branch 05/20/17 Presence of stent in coronary artery (Chronic ~05/30/04) PTCA of LAD 04/1993; PTCA/DION to prox LAD 05/30/04 Atherosclerotic heart disease of [place] coronary artery without angina pectoris (Chronic) PTCA of LAD 04/1993; PTCA/DION to prox LAD 05/30/04 Old myocardial infarction (Chronic) Hyperlipidemia (Chronic) Type 2 diabetes mellitus (Chronic) Medical History: Medical History (Last Updated 09/01/19 @ 11:[address] Filomena Avina MD) Atherosclerotic heart disease of [place] coronary artery without angina pectoris (Chronic) I25.10 PTCA of LAD 04/1993; PTCA/DION to prox LAD 05/30/04 Old myocardial infarction (Chronic) I25.2 Hyperlipidemia (Chronic) E78.5 Type 2 diabetes mellitus (Chronic) E11.9 Arthritis M19.90 BPH (benign prostatic hyperplasia) N40.0 Gout M10.9 History of kidney stones Z87.442 Allergies cephalexin Allergy (Severe, Verified 09/01/19 10:22) Hives penicillin G Allergy (Severe, Verified 09/01/19 10:22) Hives ramipril [From Altace] Allergy (Severe, Verified 09/01/19 10:22) Dry Cough Home Medications: Ambulatory Orders Medication Instructions Recorded colchicine 0.6 mg tablet 0.6 mg PO QDAY PRN 05/06/17 metformin 1,000 mg tablet 1,000 mg PO BID 05/06/17 nitroglycerin 400 mcg/spray 1 spray TRANSLINGUAL Q5M PRN 05/06/17 translingual sitagliptin 100 mg tablet 100 mg PO QDAY 05/06/17 aspirin 81 mg tablet,delayed 162 mg PO QDAY tab 06/26/17 release finasteride 5 mg tablet 5 mg PO QDAY 06/26/17 pantoprazole 40 mg tablet,delayed 40 mg PO DAILY #90 tab 09/01/17 release fenofibric acid (choline) 135 mg 135 mg PO QDAY #90 cap 10/01/17 capsule,delayed release rosuvastatin 10 mg tablet 10 mg PO DAILY #90 tab 09/28/18 glimepiride 4 mg tablet 6 mg PO QAM tab 01/25/19 metoprolol succinate 50 mg 50 mg PO QDAY #90 tab 08/20/19 tablet,extended release 24 hr Surgical History: Surgical History (Last Reviewed 07/28/19 @ 09:16 by TOBI Molina) Aortocoronary bypass status (Chronic) Onset Date: ~05/20/17 Z95.1 CABG x4-QUINN to LAD, SVG to high diagonal branch, SVG to Ramus Intermedius, SVG to the right post lateral branch 05/20/17 Presence of stent in coronary artery (Chronic) Onset Date: ~05/30/04 Z95.5 PTCA of LAD 04/1993; PTCA/DION to prox LAD 05/30/04 Postsurgical percutaneous transluminal coronary angioplasty (PTCA) status Z98.61 PTCA of LAD 04/1993; PTCA/DION to prox LAD 05/30/04 Hx of appendectomy Z90.49 Surgical History: appendectomy, coronary bypass surgery, - - S/p LAD stent Psychiatric History: No pertinent psych hx Lives: Spouse/ Significant Other Smoking Status: Former smoker Alcohol: None Drugs: None - *Family History Maternal Family History: Family History (Last Reviewed 09/01/19 @ 11:[address] Filomena Avina MD) Mother Hypertension Diabetes Sister CAD (coronary artery disease) Paternal Family History: Family History (Last Reviewed 09/01/19 @ 11:[address] Filomena Avina MD) Mother Hypertension Diabetes Sister CAD (coronary artery disease) History Items: No pertinent history Review of Systems Constitutional: Reports: Weakness. Denies: Anorexia, Chills, Fever Eyes: Denies: Blurred vision, Double vision, Drainage, Redness HEENT: Denies: Difficulty Hearing, Ear Pain, Eye Pain, Nasal Congestion, Sore Throat Cardiovascular: Reports: Chest Pain. Denies: Chest Tightness, Edema, Heaviness, Light Headedness, Palpitations, Syncope Respiratory: Reports: Shortness of Breath. Denies: Cough, Hemoptysis, Pleuritic Pain, Sputum production, Wheezing Gastrointestinal: Denies: Abdominal Pain, Constipation, Diarrhea, Nausea, Vomiting Genitourinary: Denies: Dysuria, Frequency, Hematuria Musculoskeletal: Denies: Arm Pain, Back Pain, Foot Pain Skin: Denies: Dryness, Rash Neurological: Denies: Balance problems, Double vision, Slurred speech, Confusion, Headaches, Numbness, Tingling Psychiatric: Denies: Anxiety, Depression Endocrine: Denies: Change in Body Habitus, Polydipsia, Polyuria VTE Information - Inpt Only VTE Present on Admission: No VTE Mechan Device Prophylaxis: None VTE Pharm Prophylaxis ordered?: Yes - Physical Exam Vitals/I&O's: Vital Signs Temp Pulse Resp BP Pulse Ox 98.4 F 62 17 114/65 96 09/01/19 10:23 09/01/19 11:38 09/01/19 11:38 09/01/19 11:38 09/01/19 11:38 Oxygen Delivery Method Room Air Weight: 206 lb 9.17 oz Body Mass Index (BMI) 25.8 General: Alert, Oriented x3, Cooperative, No apparent distress HEENT: Atraumatic, PERRLA, EOMI, Normocephalic Oral: Moist Mucosa, No Gingival or Mucosal Lesions/ Ulcerations Neck: Supple, No JVD, Negative Carotid Bruits, Trachea Midline, Thyroid Normal Size and Texture Lungs: Clear to auscultation, Normal air movement, No rhonchi, No wheeze, No ral es, Diminished Cardiovascular: Regular rate, Regular Rhythm, Normal S1, Normal S2, PMI Normal Abdomen: Bowel Sounds Present, Soft, Non Tender, Non-Distended, No Hepato- splenomegaly Extremities: No clubbing, No cyanosis, No edema Skin: No rashes, No breakdown Lymphatic: No Cervical, Supraclavicular, or Inguinal Adenopathy Neurological: Cranial nerves II-XII grossly intact, Motor Exam 5/5 strength throughout Psych/Mental Status: Normal Affect, Appropriate, Alert and oriented to time, place, person, mood and affect Laboratory Results 09/01/19 10:20: WBC 5.4, RBC 4.30 L, Hgb 12.9 L, Hct 37.0 L, MCV 86.0, MCH 30.0, MCHC 34.9, RDW Std Deviation 41.0, RDW Coeff of Aleks 13.3, Plt Count 166, MPV 10.3, Immature Gran % (Auto) 0.200, Neut % (Auto) 54.6, Lymph % (Auto) 31.4, [place] % (Auto) 9.1, Eos % (Auto) 4.1, Baso % (Auto) 0.6, Absolute Neuts (auto) 3.0, Absolute Lymphs (auto) 1.70, Nucleated RBC % 0 09/01/19 10:20: Sodium 136, Potassium 4.1, Chloride 105, Carbon Dioxide 26.0, Anion Gap 5, BUN 28 H, Creatinine 1.12, Estim Creat Clear Calc 66.02, Est GFR (MDRD) Af Amer 82, Est GFR (MDRD) Non-Af 68, BUN/Creatinine Ratio 25.0 H, Glucose 301 H, Calcium 8.7, Troponin I < 0.015 Clinical Impression(s) from Imaging Studies Chest X-Ray 09/01/19 10:48 IMPRESSION: Degenerative changes, as described above. No demonstrated acute cardiopulmonary process. Electronically Signed: Benjy Batista MD at 11:15 EDT , Service support , Assessment/Plan This is a 79 years old male patient presented to the emergency room because of chest pain and he is being admitted for evaluation. #1 atypical chest pain: Risk factors are age, history of CAD status post CABG, diabetes and hyperlipidemia. Initial EKG was unremarkable. First troponin is negative. Chest x-ray showed no acute findings. At this time, patient is chest pain-free. Plan: Admit to PCU for observation, cardiac monitoring, serial cardiac enzymes, repeat EKG tomorrow morning, gentle IV fluids for hydration, sublingual nitro as needed, Tylenol PRN, IV antiemetics, continue aspirin, statins, hold beta-blockers for stress test, nuclear stress test tomorrow morning if cardiac enzymes are negative. #2 CAD status post stents and CABG: Patient had CABG on May,. Since then, he has no cardiac work-up. Plan as above, continue aspirin, metoprolol and statins. #3 type 2 diabetes mellitus: ADA diet, Accu-Cheks, insulin sliding scale, continue glimepiride and sitagliptin, hold metformin. #4 hyperlipidemia: Continue rosuvastatin and fenofibric acid. #5 benign prostatic hypertrophy: Continue finasteride. #6 DVT prophylaxis: Subcu Lovenox. This note was generated with [employer] dictation software. It may contain incorrect words, spelling, and punctuation that were not noted in checking the note before signing. OBSV E&M: [id number] Initial observation care L3
[2019-09-01] MEDS: 0.9% Normal Saline 1,000 ML 75 ML IV (14:40)
[2019-09-01] MEDS: Insulin Lispro 100 UNIT/ML INSULN.PEN SC ×2 (16:15→22:10)
[2019-09-01 16:20] LABS: Bedside Glucose 218 mg/dL (70-110)
[2019-09-01] MEDS: Clopidogrel Bisulfate 300 MG Tablet PO (18:59)
[2019-09-01] MEDS: Atorvastatin Calcium 20 MG Tablet PO (22:12)
[2019-09-01 22:21] LABS: Bedside Glucose 162 mg/dL (70-110)
[2019-09-01] MEDS: Nitroglycerin Oint 1 INCH PACKET TRANSDERM. (23:26)
[2019-09-02] VITALS (29 sets, daily range): BP systolic 113–151; BP diastolic 66–89; PULSE 58–82; RESP 9–21; TEMP 35.9–37.1; O2SAT 95–100
[2019-09-02 00:46] LABS: International Normalized Ratio 1.1; Prothrombin Time (Protime)PT. 13.6 SECONDS (11.7-14.9)
[2019-09-02] MEDS: Heparin Injection (Vial) 5,000 UNIT/ML VIAL 6000 UNIT IV (01:24)
[2019-09-02] MEDS: HEPARIN/D5w 25,000 UNITS 25,000 UNITS/250 ML IV.SOLN. 12 UNITS IV (01:26)
[2019-09-02] MEDS: Nitroglycerin Oint 1 INCH PACKET TRANSDERM. ×2 (05:37→17:23)
--- NOTE | 2019-09-02 05:55 | EKG12_ITS ---
Test Reason : AM EKG Blood Pressure : / mmHG Vent. Rate : 066 BPM Atrial Rate : 066 BPM P-R Int : 218 ms QRS Dur : 098 ms QT Int : 440 ms P-R-T Axes : 017 037 093 degrees QTc Int : 461 ms Sinus rhythm with 1st degree A-V block with Premature atrial complexes in a pattern of bigeminy Otherwise normal ECG When compared with ECG of 12-MAY-2017 04:52, Premature atrial complexes are now Present Confirmed by JIGAR TURNER ([id number]), editor magazine MIRIAM TALBOT ([id number]) on 09/06/2019 12:46:23 PM Referred By: DEDRA Confirmed By:JIGAR TURNER
[2019-09-02 07:01] LABS: Bedside Glucose 181 mg/dL (70-110)
[2019-09-02] MEDS: Aspirin E.C. 81 MG Tablet 162 MG PO (07:42)
[2019-09-02] MEDS: Clopidogrel Bisulfate 75 MG Tablet PO (07:42)
[2019-09-02 07:49] LABS: Absolute Lymphocyte Count 1.36 X10^3/uL (0.83-4.51); Basophil# 0.02 X10^3/uL; Basophil% 0.3 % (0-1); Eosinophil# 0.14 X10^3/uL; Eosinophils% 2.3 % (0-5); Hematocrit 37.2 % (40-54); Hemoglobin 13.2 g/dL (13.0-16.5); Lymphocyte # 1.36 X10^3/ul (4.0); Lymphocyte % 22.5 % (19-41); Mean Corp Hgb Conc 35.5 g/dL (32-36); Mean Corpuscular Hgb 29.7 pg (27.0-32.0); Mean Corpuscular Volume 83.8 fL (80-94); Mean Platelet Vol. 10.3 fl (6.2-12.0); Monocyte# 0.52 X10^3/uL; Monocyte% 8.6 % (0-10); NRBC Flagged by Analyzer 0 % (0-5); Neutrophil # 3.98 X10^3/uL (2.7-7.7); Neutrophil % 65.8 % (47-70); Platelet Count 165 K/mm3 (150-450); RBC Distribution Width SD 39.2 fl (35.1-43.9); Red Blood Count 4.44 M/mm3 (4.6-6.2); White Blood Count 6.1 K/mm3 (4.4-11.0)
--- NOTE | 2019-09-02 08:09 | PCM.CONS.C ---
Problem List (1) NSTEMI (non-ST elevated myocardial infarction) Status: Acute (2) CAD (coronary artery disease) Status: Chronic Qualifiers: Coronary Disease-Associated Artery/Lesion type: bypass graft [place] vs. transplanted heart: [place] heart Associated angina: with unstable angina Qualified Code(s): I25.700 - Atherosclerosis of coronary artery bypass graft(s), unspecified, with unstable angina pectoris (3) Presence of stent in coronary artery Status: Chronic Comment: PTCA of LAD 04/1993; PTCA/DION to prox LAD 05/30/04 (4) S/P CABG (coronary artery bypass graft) Status: Chronic (5) Hyperlipidemia Status: Chronic Qualifiers: (6) Type 2 diabetes mellitus Status: Chronic Reason for Consult Date of Consultation: 09/02/19 History of Present Illness: The patient is a 79 year [id number] white male with a past cardiovascular history of CAD, PCI (LAD), CABG (QUINN to the LAD, SVG to the diagonal branch, SVG to the intermediate ramus branch, SVG to the right posterior lateral branch), hyperlipidemia, and diabetes mellitus who presents for symptoms and findings concerning for unstable angina pectoris and a non-ST segment elevation CO. He states that he was carrying 5 gallon buckets of water yesterday from his well to his garden. He notes later on he developed both right and left-sided upper chest discomfort which he described as a dull sensation. He also noted some discomfort in his left elbow area. He noted this was different from previous feelings that he has had with respect to other type of musculoskeletal work. He did not complain of acute nausea, emesis, or diaphoresis. His spouse states that he appeared more short of breath and dyspneic and was holding his chest. He did use nitroglycerin sublingual spray and felt temporary relief. He eventually presented to the emergency department for further evaluation. There he had cardiac enzymes performed which initially negative but eventually trended upward in the indeterminate range and then the positive range. His ECG demonstrated sinus rhythm with no acute ECG changes. He was considered to be a non-ST segment elevation CO. He was treated medically with antiplatelet therapy, anticoagulant therapy, and additional nitrates in addition to his baseline medications. He states that overall he has been feeling better this morning. A repeat ECG was performed which demonstrated continued sinus rhythm with no new acute ECG changes. His chest x-ray suggested post open heart surgery changes with no new acute cardiopulmonary disease process. He has denied any orthopnea, PND, or peripheral pitting edema. There has been no near syncope or syncope. [] Past Medical History Allergies/Adverse Reactions: Allergies cephalexin Allergy (Severe, Verified 09/01/19 10:22) Hives penicillin G Allergy (Severe, Verified 09/01/19 10:22) Hives ramipril [From Altace] Allergy (Severe, Verified 09/01/19 10:22) Dry Cough Home Medications: Ambulatory Orders Medication Instructions Recorded colchicine 0.6 mg tablet 0.6 mg PO QDAY PRN 05/06/17 metformin 1,000 mg tablet 1,000 mg PO BID 05/06/17 nitroglycerin 400 mcg/spray 1 spray TRANSLINGUAL Q5M PRN 05/06/17 translingual sitagliptin 100 mg tablet 100 mg PO QDAY 05/06/17 aspirin 81 mg tablet,delayed 162 mg PO QDAY tab 06/26/17 release finasteride 5 mg tablet 5 mg PO QDAY 06/26/17 pantoprazole 40 mg tablet,delayed 40 mg PO DAILY #90 tab 09/01/17 release fenofibric acid (choline) 135 mg 135 mg PO QDAY #90 cap 10/01/17 capsule,delayed release rosuvastatin 10 mg tablet 10 mg PO DAILY #90 tab 09/28/18 glimepiride 4 mg tablet 6 mg PO QAM tab 01/25/19 metoprolol succinate 50 mg 50 mg PO QDAY #90 tab 08/20/19 tablet,extended release 24 hr Past Medical History (Chronic Problems): Chronic Problems (Last Updated 09/01/19 @ 11:[address] Filomena Avina MD) CAD (coronary artery disease) (Chronic) S/P CABG (coronary artery bypass graft) (Chronic) Aortocoronary bypass status (Chronic ~05/20/17) CABG x4-QUINN to LAD, SVG to high diagonal branch, SVG to Ramus Intermedius, SVG to the right post lateral branch 05/20/17 Presence of stent in coronary artery (Chronic ~05/30/04) PTCA of LAD 04/1993; PTCA/DION to prox LAD 05/30/04 Atherosclerotic heart disease of [place] coronary artery without angina pectoris (Chronic) PTCA of LAD 04/1993; PTCA/DION to prox LAD 05/30/04 Old myocardial infarction (Chronic) Hyperlipidemia (Chronic) Type 2 diabetes mellitus (Chronic) Surgical History: appendectomy, coronary bypass surgery, - - S/p LAD stent Psychiatric History: No pertinent psych hx - *Family History Maternal Family History: Family History (Last Reviewed 09/01/19 @ 11:[address] Filomena Avina MD) Mother Hypertension Diabetes Sister CAD (coronary artery disease) History Items: No pertinent history Paternal Family History: Family History (Last Reviewed 09/01/19 @ 11:[address] Filomena Avina MD) Mother Hypertension Diabetes Sister CAD (coronary artery disease) History Items: No pertinent history Lives: Spouse/ Significant Other Smoking Status: Former smoker Alcohol: None Drugs: None Review of Systems - Review of Systems General: Denies: Fever, Night Sweats, Fatigue Cardiovascular: Reports: Chest Discomfort, Chest Discomfort at Rest, Chest Discomfort with Exertion, Shortness of Breath. Denies: Orthopnea, PND, Peripheral Edema, Palpitations, Lightheadedness, Dizziness, Near Syncope, Syncope Respiratory: Denies: Cough, Sputum Production, Hemoptysis Gastrointestinal: Denies: Hematemesis, Hematochezia, Melena Genitourinary: Denies: Dysuria, Hematuria Skin: Denies: Rash Subjectve: Is a 79-year-old white male appears to be resting comfortably at the moment in no acute distress. Objective: Vital Signs Temp Pulse Resp BP Pulse Ox 97.8 F 65 20 H 140/83 H 95 09/02/19 05:39 09/02/19 05:39 09/02/19 05:39 09/02/19 05:39 09/02/19 06:59 Oxygen Delivery Method Room Air Weight: 200 lb Body Mass Index (BMI) 25.0 Intake and Output for Last 24 Hours 08/31/19 09/01/19 09/02/19 23:59 23:59 23:59 Intake Total 740 / 740 1069.2 / 1069.2 Balance 740 / 740 1069.2 / 1069.2 General: Awake, Alert, Oriented x 3, Cooperative, No Acute Distress HEENT: Atraumatic, Normocephalic, PERRL, EOMI, Sclera Non Icteric Neck: Supple, Good ROM Lungs: Clear to auscultation Cardiovascular: Regular Rhythm, Normal S1, Normal S2 Vascular: No Carotid Bruits Abdomen: Bowel Sounds Present, Soft, Non Tender Extremities: No edema Neurological: No Focal Motor or Sensory Deficit Psych/Mental Status: Appropriate 09/01/19 10:20: WBC 5.4, RBC 4.30 L, Hgb 12.9 L, Hct 37.0 L, MCV 86.0, MCH 30.0, MCHC 34.9, Plt Count 166, MPV 10.3, Immature Gran % (Auto) 0.200, Neut % (Auto) 54.6, Lymph % (Auto) 31.4, [place] % (Auto) 9.1, Eos % (Auto) 4.1, Baso % (Auto) 0.6, Absolute Neuts (auto) 3.0, Nucleated RBC % 0 09/01/19 10:20: Sodium 136, Potassium 4.1, Chloride 105, Carbon Dioxide 26.0, Anion Gap 5, BUN 28 H, Creatinine 1.12, Est GFR (MDRD) Af Amer 82, Est GFR (MDRD) Non-Af 68, BUN/Creatinine Ratio 25.0 H, Glucose 301 H, Calcium 8.7, Troponin I < 0.015 09/01/19 13:00: Troponin I 0.058 H 09/01/19 16:55: Troponin I 0.106 H 09/01/19 21:20: Troponin I 0.538 H 09/01/19 23:47: PT 13.6, INR 1.1, APTT 26.0 09/02/19 07:30: WBC 6.1, RBC 4.44 L, Hgb 13.2, Hct 37.2 L, MCV 83.8, MCH 29.7, MCHC 35.5, Plt Count 165, MPV 10.3, Immature Gran % (Auto) 0.500, Neut % (Auto) 65.8, Lymph % (Auto) 22.5, [place] % (Auto) 8.6, Eos % (Auto) 2.3, Baso % (Auto) 0.3, Absolute Neuts (auto) 4.0, Nucleated RBC % 0 Rhythm: Sinus rhythm EKG: Sinus rhythm; no acute ECG changes ECHO: 05-12-2017: Left ventricle normal with an LVEF of 60%; mild TR; estimated RV systolic pressure 27 mmHg Stress Test: 05-12-2017 Stress Test Report Exercise myocardial perfusion stress test. 77-year-old man with a history of coronary artery disease and previous stenting. Stress protocol: Resting EKG demonstrates sinus bradycardia with a rate of 61 bpm resting blood pressure is 122/70 mmHg. Patient exercised according to the regular Tyler protocol for total duration of 7 minutes and 30 seconds patient completed 1 minute and 30 seconds to stage III of the Tyler protocol. The maximum heart rate attained was 123 bpm which was 84% of maximum predicted heart rate the maximum workload attained was 9.3 metabolic equivalents. At rest there were no ST or T-wave changes noted suggest ischemia at peak exercise there was approximately [address] depression noted in leads II, III and I 0.[address] depression noted in aVF. 1.[address] depression was noted in V5 and V6. Premature ventricular complexes were noted during exercise. The patient also complained of mild chest discomfort which appeared to dissipate at the termination of exercise. The resting blood pressure is 122/70 with a peak blood pressure 142/74 mmHg. Myocardial perfusion protocol. 11.8 mCi of technetium 99m sestamibi was injected at rest. The patient exercised according to regular Tyler protocol for total duration of 7 minutes and 30 seconds attaining 9.3 metabolic equivalents. At peak exercise 35.0 mCi of technetium 99m sestamibi was injected. Stress images were obtained stress and rest images were reconstructed and compared in the short axis vertical long and horizontal long axis. Gated images were also obtained. Perfusion SPECT analysis. Review of the stress images demonstrate a medium-sized defect noted involving the mid to distal anteroseptal and apical briceno. The inferior wall also demonstrates reduced perfusion on the stress images. The resting images demonstrate improvement in the inferior wall as well as the distal anterior septal and apical briceno. The lateral wall appears to well perfused on the stress and resting images. The above pattern is suggestive of anteroseptal ischemia as well as apical ischemia. Previous inferior infarct with ischemia can also not be excluded. Gated SPECT analysis. The gated ejection fraction is noted to be 54%. Conclusion: Abnormal exercise myocardial perfusion stress test with evidence of anterior septal, apical, inferior ischemia. Preserved ejection fraction. Clinical angina noted. Mild functional aerobic impairment. Cardiac Cath: 05-12-2017 CONCLUSIONS Severe two-vessel disease involving the proximal left anterior descending artery, proximal circumflex artery, mid left anterior descending artery, and moderate disease of the mid right coronary artery. RECOMMENDATIONS Surgery consult for coronary revascularization DESCRIPTION OF PROCEDURE The patient arrived to the procedure lab. The risks and benefits of the procedure as well as a full description of our services here and current unavailability of surgical backup were fully explained to the patient and/or their significant other prior to the catheterization. The Timeout was completed, verifying the correct patient and procedure. The patient's procedural site was prepped and draped in the usual fashion. Local anesthetic was given subcutaneously to right radial region with Lidocaine 2%. Using a modified Seldinger technique, arterial access was obtained via the right radial artery, a 6Fr sheath was inserted. Left Coronary Artery selective angiography was performed in multiple views using a 5 Fr. 4.0 [place] catheter. Right Coronary Artery selective angiography was then performed in multiple views using a 5 Fr. 4.0 [place] catheter. Left Ventriculography was performed in MENA projection using a 5 Fr. Pigtail catheter. LV to AO pullback pressures were then recorded.The arterial sheath was pulled and a TR Band was applied for hemostasis w/ 18ml air CORONARY ANGIOGRAPHY DOMINANCE: Right Dominant LEFT HEART ASSESSMENT Left Ventricular Ejection Fraction: by LV Gram 60 % Normal LV wall motion Normal Left Ventricular systolic function LEFT MAIN: Angiographically normal LEFT ANTERIOR DECENDING ARTERY: PROX LAD: 70 long % Stenosis, Previously placed stent has an instent 40 % restenosis MID LAD: Diffusely diseased up to 95 % DISTAL LAD: 90 % Stenosis CIRCUMFLEX ARTERY: PROX CIRC: Diffusely diseased up to 80% prior to the bifurcation of 2 obtuse marginal branches and an AV groove branch RIGHT CORONARY ARTERY: MID RCA: 60 % Stenosis CT Surgery: 05-20-2017: [facility]: QUINN to the LAD, SVG to the high diagonal branch, SVG to the intermediate ramus branch, SVG to the right posterior lateral branch CXR: As noted above Assessment/Plan 1. Non-ST segment elevation CO The patient does have findings compatible with a non-ST segment elevation CO. He is going to continue to be monitored. He will continue medical therapy with adjustment as deemed appropriate. He has been recommended for further evaluation with diagnostic cardiac catheterization. The procedure and risks were discussed with him. He was agreeable to this approach. 2. CAD status post PCI status post CABG The patient has undergone evaluation in the past which is led to PCI of the LAD and subsequent CABG. He now presents with findings compatible with a non-ST segment elevation CO. He will continue to be monitored. He will continue medical therapy. He will continue with plans for diagnostic cardiac catheterization. 3. Hyperlipidemia Patient will continue risk factor evaluation and care. 4. Diabetes mellitus Patient will continue evaluation care per internal medicine. Comment: The above was discussed with the patient, his spouse, and Dr. Avina. This note was generated using a voice recognition system and there may be incorrect words, spelling or punctuation that were not noted when reviewing the office note prior to saving. Procedure Criteria Procedure Type: Elective COVID Risk Discussion: The surgeon/proceduralist and patient have discussed in detail the risk of exposure to and/or potential harm posed by the COVID-19 virus with having a surgery/procedure at this time versus the risk of delaying the surgery/procedure. It is not possible to know either the risk of delaying the surgery or procedure or chance of getting an infection with perfect accuracy, but a joint decision was made between the patient and the surgeon/proceduralist to proceed at this time with the scheduled surgery/procedure as indicated on the consent form.
[2019-09-02 08:23] LABS: Partial Thromboplast Time 43.5 Seconds (24.1-36.2)
[2019-09-02 10:26] LABS: ACT Activated Clotting Time 169 sec (74-137)
--- NOTE | 2019-09-02 10:45 | EKG12_ITS ---
Test Reason : POST PCI Blood Pressure : / mmHG Vent. Rate : 066 BPM Atrial Rate : 066 BPM P-R Int : 212 ms QRS Dur : 092 ms QT Int : 448 ms P-R-T Axes : 014 022 095 degrees QTc Int : 469 ms Sinus rhythm with marked sinus arrhythmia with 1st degree A-V block Nonspecific ST and T wave abnormality Prolonged QT Abnormal ECG When compared with ECG of 02-SEP-2019 05:25, MANUAL COMPARISON REQUIRED, DATA IS UNCONFIRMED Confirmed by JIGAR TURNER ([id number]), medical editor MIRIAM TALBOT ([id number]) on 09/06/2019 12:50:17 PM Referred By: RICHELLE Confirmed By:JIGAR TURNER
[2019-09-02] MEDS: 0.9% Normal Saline 1,000 ML 15 ML IV (11:03)
--- NOTE | 2019-09-02 11:05 | PCM.PROGNOTE ---
Patient Problems: Active and Suspected Problems (Last Updated 09/01/19 @ 11:[address] Filomena Avina MD) NSTEMI (non-ST elevated myocardial infarction) (Acute) Subjective: Chief complaint: Follow-up after admission for acute non-ST elevation MS. Patient seen and examined. No acute events overnight. Today, he mentioned that his chest pain is getting better but still having intermittent chest discomfort bilaterally. No shortness of breath. Denied other complaints. He underwent cardiac catheterization, found to have 95% stenosis of the first obtuse marginal branch, status post PTCA/DION to left circumflex/obtuse marginal. His vital signs are stable. - Physical Exam Vitals/I&O's: Vital Signs Temp Pulse Resp BP Pulse Ox 97.8 F 73 20 H 140/83 H 95 09/02/19 05:39 09/02/19 07:00 09/02/19 05:39 09/02/19 05:39 09/02/19 06:59 Oxygen Delivery Method Room Air Weight: 200 lb Body Mass Index (BMI) 25.0 Intake and Output for Last 24 Hours 08/31/19 09/01/19 09/02/19 23:59 23:59 23:59 Intake Total 740 / 740 1069.2 / 1069.2 Balance 740 / 740 1069.2 / 1069.2 General: Alert, Oriented x3, Cooperative, No apparent distress HEENT: Atraumatic, PERRLA, EOMI, Normocephalic Oral: Moist Mucosa, No Gingival or Mucosal Lesions/ Ulcerations Neck: Supple, No JVD, Negative Carotid Bruits, Trachea Midline, Thyroid Normal Size and Texture Lungs: Clear to auscultation, Normal air movement, No rhonchi, No wheeze, No rales Cardiovascular: Regular rate, Regular Rhythm, Normal S1, Normal S2, PMI Normal Abdomen: Bowel Sounds Present, Soft, Non Tender, Non-Distended, No Hepato-splenomegaly Extremities: No clubbing, No cyanosis, No edema Skin: No rashes, No breakdown Neurological: Cranial nerves II-XII grossly intact, Motor Exam 5/5 strength throughout Psych/Mental Status: Normal Affect, Appropriate, Alert and oriented to time, place, person, mood and affect Laboratory Results 09/01/19 13:00: Troponin I 0.058 H 09/01/19 16:14: POC Glucose 218 H 09/01/19 16:55: Troponin I 0.106 H 09/01/19 21:20: Troponin I 0.538 H 09/01/19 22:09: POC Glucose 162 H 09/01/19 23:47: PT 13.6, INR 1.1, APTT 26.0 09/02/19 06:44: POC Glucose 181 H 09/02/19 07:30: Troponin I 2.930 H* 09/02/19 07:30: APTT 43.5 H 09/02/19 07:30: WBC 6.1, RBC 4.44 L, Hgb 13.2, Hct 37.2 L, MCV 83.8, MCH 29.7, MCHC 35.5, RDW Std Deviation 39.2, RDW Coeff of Aleks 13.0, Plt Count 165, MPV 10.3, Immature Gran % (Auto) 0.500, Neut % (Auto) 65.8, Lymph % (Auto) 22.5, [place] % (Auto) 8.6, Eos % (Auto) 2.3, Baso % (Auto) 0.3, Absolute Neuts (auto) 4.0, Absolute Lymphs (auto) 1.36, Nucleated RBC % 0 09/02/19 10:01: Activated Clotting Time 169 H Current Medications Acetaminophen (Tylenol) 650 mg PO Q6H PRN PRN PRN Reason: Pain Score 1-10/Temp > 100.7 F Aspirin (Ecotrin) 162 mg PO DAILY@0800 [facility] Last Admin: 09/02/19 07:42 Dose: 162 mg Documented by: Atorvastatin Calcium (Lipitor) 20 mg PO QHS [facility] Last Admin: 09/01/19 22:12 Dose: 20 mg Documented by: Atropine Sulfate () 0.5 mg IV UD PRN PRN Reason: HR <50 bpm Dextrose (D50w Syringe) 0 gm IV X1 PRN; Protocol PRN Reason: Hypoglycemia Fenofibrate (Tricor) 145 mg PO DAILY@0800 [facility] Finasteride (Proscar) 5 mg PO DAILY [facility] Glimepiride (Amaryl) 6 mg PO QAM@0800 [facility] Last Admin: 09/02/19 11:03 Dose: Not Given Documented by: Glucagon () 1 mg IM .X1 PRN PRN Reason: Hypoglycemia Heparin Sodium (Porcine) (Heparin Na) 0 unit IV UD PRN; Protocol Hydralazine HCl (Apresoline Iv) 10 mg IV Q8H PRN PRN PRN Reason: for SBP>160 Heparin Sodium/Dextrose () 25,000 units in 250 mls @ 12 mls/hr IV .[id number] MARTHA; Protocol Last Titration: 09/02/19 07:12 Dose: 0 units/hr, 0 mls/hr Documented by: Sodium Chloride () 1,000 mls @ 15 mls/hr IV .Q48H MARTHA Last Admin: 09/02/19 11:03 Dose: 15 mls/hr Documented by: Insulin Human Lispro (Humalog Kwikpen (Bkc)) 0 unit SC ACHS [facility]; Protocol Last Admin: 09/02/19 06:59 Dose: Not Given Documented by: Labetalol HCl (Trandate) 5 mg IV X1 PRN PRN Reason: SBP > 160 when pulling sheath Stop: 09/04/19 10:42 Linagliptin (Tradjenta) 5 mg PO DAILY [facility] Nitroglycerin (Nitrostat) 0.4 mg SUBLINGUAL Q5M PRN PRN Reason: CARDIAC/CHEST PAIN Nitroglycerin (Nitrobid) 1 inch TRANSDERM. Q6 [facility] Last Admin: 09/02/19 05:37 Dose: 1 inch Documented by: Ondansetron HCl (Zofran) 4 mg IV Q8H PRN PRN PRN Reason: NAUSEA/VOMITING Pantoprazole Sodium (Protonix) 40 mg PO DAILY [facility] Sodium Chloride () 10 - 40 ml IV UD PRN PRN Reason: SALINE FLUSH Sodium Chloride () 500 ml IV BOLUS PRN PRN Reason: VASO-VAGAL PROTOCOL Zolpidem Tartrate (Ambien (Generic)) 5 mg PO QHS PRN PRN PRN Reason: INSOMNIA Medical Necessity - Tobacco Use Smoking Status: Former smoker Assessment/Plan All Active Problems (Last Updated 09/01/19 @ 11:[address] Filomena Avina MD) NSTEMI (non-ST elevated myocardial infarction) (Acute) This is a 79 years old male patient presented to the emergency room because of chest pain and he is being admitted for evaluation. #1 Acute non-ST elevation MS: Status post cardiac catheterization, found to have 95% stenosis of the obtuse marginal, status post PTCA/DION to left circumflex/obtuse marginal artery. EKG revealed no acute segment changes. Troponin was elevated and went up to 2.93. He is on IV heparin drip, aspirin, Lipitor, TriCor and he will be started on either Plavix or Brilinta. Vital signs are stable. Cardiology on the case. Plan to resume metoprolol, repeat CBC and BMP tomorrow morning. #2 CAD status post stents and CABG: Patient had CABG on May,. Underwent cardiac catheterization today, intervention performed as above. Plan to continue aspirin, statins, TriCor, resume metoprolol as above, IV heparin drip for now. #3 type 2 diabetes mellitus: Continue ADA diet, Accu-Cheks, insulin sliding scale, continue glimepiride and sitagliptin, keep holding metformin. #4 hyperlipidemia: Continue rosuvastatin and fenofibric acid. #5 benign prostatic hypertrophy: Continue finasteride. #6 DVT prophylaxis: He is on IV heparin drip. This note was generated with [employer] dictation software. It may contain incorrect words, spelling, and punctuation that were not noted in checking the note before signing. Inpatient E&M: 38636 Subs Hosp L2
[2019-09-02 12:25] LABS: ACT Activated Clotting Time 136 sec (74-137)
--- NOTE | 2019-09-02 12:26 | CL.I_ITS ---
Patient Name: ROBERTO POWELL Study Date: 09/02/2019 Performing: Guerline Marie MD Ht: 75 inches 191 cm : 1940 Wt: 200.9 lbs 91 kg Age: 79 Gender: male BSA: 2.2 PROCEDURE(S) PERFORMED FW46-[facility]/COR/LV/CABG [id number] W OR WO PTCA, SINGLE CORONARY ARTERY CLINICAL PROFILE AND CO-MORBIDITIES Indications: ACS <= 24 hrs, NSTEMI Heart Failure: None CONCLUSIONS Successful PCI with DION to the LCx/OM1 bifurcation (DION to OM1 and prox LCx and PTCA alone of the LCx distal to the origin of OM1). RECOMMENDATIONS DESCRIPTION OF PROCEDURE The patient arrived to the procedure lab. The risks and benefits of the procedure as well as a full d escription of our services here and current unavailability of surgical backup were fully explained to the patient and/or their significant other prior to the catheterization. The Timeout was completed, verifying the correct patient and procedure. The patient's procedural site was prepped and draped in the usual fashion. Local anesthetic was given subcutaneously to right groin region with Lidocaine 2% Using a modified Seldinger technique,arterial access was obtained via the right femoral artery, a 4Fr sheath was inserted Left Coronary Artery selective angiography was performed in multiple views using a 4 Fr. JL5 catheter. Right Coronary Artery selective angiography was then performed in multiple vie ws using a 4 Fr. 3DRC catheter. Left internal mammary artery graft to the LAD selective angiography w as performed in multiple views using a 4 Fr. 3DRC catheter. Left Ventriculography was performed in MENA projection using a 4 Fr. Pigtail catheter. LV to AO pullback pressures were then rec orded.The images were reviewed and options discussed. A decision was then made to proceed with an Int ervention, IVUS or other adjunct procedure. Arterial sheath was exchanged for a 6 Fr Sheath. XB 3.5 Guide catheter was inserted Arterial viveros th was exchanged from a 11cm 6 Fr Sheath to a 55cm 6 Fr Sheath. XB 3.0 Guide catheter was inserted an d engaged into the LCA. BMW Barker Guide wire was advanced to the Circumflex. Whisper Guide wire w as inserted and advanced into the OM1 Emerge 2.25 x 12 Balloon catheter was inserted on the Whisper W jose. Balloon catheter was advanced across lesion in the first obtuse marginal, ostial. PTCA balloon i nflated at 8 atms for 20 secs. PTCA balloon inflated at 8 atms for 20 secs. Emerge 2.5 x 12 Balloon c atheter was reinserted on the BMW Wire PTCA balloon inflated at 8 atms for 14 secs. Synergy 2.5 x 12 Drug Eluting stent was inserted on the Whisper Wire. Drug Eluting stent was advanced across the lesio n in the first obtuse marginal, ostial. BMW Barker Guide wire was repositioned to the 1st OM NC Em erge 2.5 x 8 Balloon catheter was inserted on the Whisper Wire. Post Stent PTCA balloon inflated at 12 atms for 35 secs. Post Stent PTCA balloon inflated at 14 atms for 15 secs. The arter ial sheath was exchanged to a standard sheath and sutured inplace. INTERVENTION INFORMATION LESION SITE: 1st OM (Ostial) Lesion Complexity: High/C, chronic total occlusion: No, lesion at bifurcation: Yes, thrombus present: No, lesion length: 12 mm, culprit lesion: Yes, Previously treated lesion: No Pre Stenosis: 95 % Pre intervention DEEP flow: 3 PROCEDURE: Drug Eluting Stent with pre and post dilatation The lesion extended from the ostial LCx into the OM. The stent was deployed from the ostial LCx into OM1. The portion of the LCx immediately distal to the OM1 was predilated with a 2.5 balloon and was n ot pinched after the stent deployment. Post Stenosis: 0 % Post intervention DEEP flow: 3 Lesion Devices: Kaur .014 BMW Barker Straight 190cm Cardinal 6 Fr XB3.5 100cm Guide Catheter Cook 6F 55cm Sheath Cardinal 6 Fr XB3.0 100cm Guide Catheter Kaur .014 HT Whisper MS Straight 190cm Bryce Sci EMERGE MR 2.25x12 BALLOON Bryce Sci Synergy MR DION 2.50x12 Bryce Sci NC EMERGE MR 2.50x08 BALLOON COMPLICATIONS No Complications PROCEDURE MEDICATIONS Versed 1 mg IV Oxygen: 2 L/min via nasal cannula Heparin 6000 unit(s) IV 09/02/2019 09:29:53 Heparin 200 unit(s) IV 09/02/2019 10:04:52 SUMMARY OF HEMODYNAMIC DATA Time AIR REST ECG 08:29:14 AO 119/63 (86) SA 08:44:48 LV 131/-21, 9 09:13:41 LV 122/-18, 9 09:13:47 LV 127/-16, 14 09:14:39 LV 127/-21, 10 09:14:45 LVp 122/-20, 8 09:14:57 AOp 133/62 (92) 09:15:02 Signed By Guerline Marie MD On 09/02/2019 12:25:59 PM Guerline Marie MD
[2019-09-02] MEDS: 0.9% Normal Saline 1,000 ML 60 ML IV (12:27)
--- NOTE | 2019-09-02 14:01 | CRPHASE1_ITS ---
Patient Communication Former Patient:: Phase I PHII Cardiac Rehab Discussed with Patient:: Yes Guide to Cardiac Rehab Given to Patient:: Yes Cardiac Rehab Facility Choice List Given to Patient:: Yes Choice Program [facility] CR PHII:: Communication Given to CR Choice Program Other:: Communication Given to CR Refer Phase II Cardiac Rehab:: Yes Sessions:: 36 sessions - 3 days/wk, 12 weeks Risk Factors/Lifestyle Smoking Status: Never smoker Hx Hypertension: No Hx Diabetes Mellitus Type 1: No Hx Diabetes Mellitus Type 2: Yes Hx Metabolic Disorders: No Hx Dyslipidemia: Yes Hx Obesity: No Post-Menopausal: No ETOH: No Caffeine: No Substance Abuse: No Risk Factor for Sedentary Lifestyle: Lowest Risk Family History: Family History (Last Reviewed 09/01/19 @ 11:[address] Filomena Avina MD) Mother Hypertension Diabetes Sister CAD (coronary artery disease) Past Cardiac Illness: Ejection Fraction, Coronary Artery Disease, Myocardial Infarction, Previous PCI w/Stent, Coronary Artery Bypass Graft Phase I Education Given On:: [place], Nutrition, Antiplatelet medication, CHF, Diabetes - Type II Issues Affecting Care:: None Knowledge of Condition:: Yes Learning Preferences: Verbal Cardiac Rehabilitation Info Cardiac Rehabilitation Program Information: Cardiac Rehabilitation is important for patients like you who are recovering from a heart problem. Cardiac rehabilitation programs are recognized as integral to the continued care of the patient with coronary heart disease. The cardiac rehabilitation program is designed to optimize a patient's physical, psychological, and social functioning. Health career technical counselor work in cardiac rehabilitation programs and assist you with getting the treatments you need to get stronger and healthier - like exercise, healthy eating habits, and medications. Cardiac rehabilitation has been show to help people with heart problems live longer and have better life enjoyment than people who do not go to cardiac rehabilitation. Please contact the Cardiac Rehabilitation Program at [facility] [place] at in two weeks if you have not heard from them.
--- NOTE | 2019-09-02 14:04 | CRPH1.INSTRU ---
General Education CAD and cardiac anatomy and function:: Patient communicates acknowledgment Explanation of diagnoses and procedures:: Patient communicates acknowledgment Sign/Symptoms of [place]:: Patient communicates acknowledgment Antiplatelet therapy: Patient communicates acknowledgment Proper use of NTG-SL: Patient communicates acknowledgment Emergency procedures and activation of EMS: Patient communicates acknowledgment Compliance of all prescribed medications: Patient communicates acknowledgment Dyslipidemia Patient Dyslipidemia Risk Factors Are:: HDL Recommendations Include:: Lipid profile provided, Reviewed NCEP/ATP guidelines, Therapeutic Lifestyle Change dietary guidelines Dyslipidemia Response Code:: Patient communicates acknowledgment Hypertension Recommendations Include:: BP <130/80 if diabetic, DASH dietary guidelines, Decrease/maintain normal body weight, Moderation of ETOH Hypertension:: Patient communicates acknowledgment Heart Disease Patient Heart Disease Risk Factors Are:: Family history of heart disease < 65 years old, Previous cardiac event Heart Disease Response Code:: Patient communicates acknowledgment Diabetes Patient Diabetes Risk Factors Are:: Elevated blood sugars Recommendations Include:: Maintain fasting blood sugars 70-110 md/dL, Maintain HgbA1c of 6% or less, Monitor blood sugar as prescribed, Diabetic dietary guidelines, Decrease/maintain body weight Diabetes:: Patient communicates acknowledgment
[2019-09-02] MEDS: Pantoprazole Sodium 40 MG Tablet PO (16:03)
[2019-09-02] MEDS: Metoprolol(XL)Succ 50 MG Tablet PO (16:04)
[2019-09-02 16:06] LABS: Bedside Glucose 174 mg/dL (70-110)
[2019-09-02] MEDS: Fenofibrate 145 MG Tablet PO (16:11)
[2019-09-02] MEDS: Insulin Lispro 100 UNIT/ML INSULN.PEN SC ×2 (16:11→22:44)
[2019-09-02] MEDS: LINAGLIPTIN 5 MG TABLET PO (17:23)
[2019-09-02] MEDS: Finasteride 5 MG Tablet PO (17:23)
--- NOTE | 2019-09-02 17:50 | CL.D_ITS ---
Patient Name: ROBERTO POWELL Study Date: 09/02/2019 Performing: Charles Craft MD Ht: 75 inches 191 cm : 1940 Wt: 200.9 lbs 91 kg Age: 79 Gender: male BSA: 2.2 PROCEDURE(S) PERFORMED DC11-AO ROOT ANGIO WITH HEART CATH UM31-TYT/COR/LV/CABG [id number] W OR WO PTCA, SINGLE CORONARY ARTERY CLINICAL PROFILE AND INDICATIONS Indications: ACS <= 24 hrs, NSTEMI, ACS <= 24 hrs Heart Failure: None Stress/Imaging Stress/Image Study Performed: No Angina Classification Anginal Classification w/in 2 Weeks: CCS III CAD Presentations: Non-STEMI. CONCLUSIONS Normal Left Ventricular End Diastolic Pressure Normal LV size, wall motion,and systolic function LVEF: by LV gram 55 % [place] Multivessel CAD QUINN to LAD: patent SVG to DX1: occluded SVG to OM1: occluded SVG to RPL: occluded Right to Left collateral flow RECOMMENDATIONS Risk factor modification Medical therapy Referred for immediate PCI (LCX/OM system) DESCRIPTION OF PROCEDURE The patient arrived to the procedure lab. The risks and benefits of the procedure as well as a full d escription of our services here and current unavailability of surgical backup were fully explained to the patient and/or their significant other prior to the catheterization. The Timeout was completed, verifying the correct patient and procedure. The patient's procedural site was prepped and draped in the usual fashion. Local anesthetic was given subcutaneously to right groin region with Lidocaine 2%. Using a modified Seldinger technique, arterial access was obtained via the right femoral artery, a 4 Fr sheath was inserted Left Coronary Artery selective angiography was performed in multiple views us ing a 4 Fr. JL5 catheter. Right Coronary Artery selective angiography was then performed in multiple views using a 4 Fr. 3DRC catheter. Left internal mammary artery graft to the LAD selective angiograph y was performed in multiple views using a 4 Fr. 3DRC catheter. Left Ventriculography was performed in MENA projection using a 4 Fr. Pigtail catheter. LV to AO pullback pressures were then rec orded.The arterial sheath was exchanged to a standard sheath and sutured inplace. CORONARY ANGIOGRAPHY DOMINANCE: Right Dominant LEFT HEART ASSESSMENT Left Ventricular Ejection Fraction: by LV Gram 55 % Normal LV wall motion Normal Left Ventricular End Diastolic Pressure LVEDP: 9 mmHg LEFT MAIN: Angiographically normal LEFT ANTERIOR DESCENDING ARTERY: PROX LAD: Previously placed stent is occluded MID LAD: to distal: filling from the QUINN graft with distal serial 50 - 75 % Stenosis CIRCUMFLEX ARTERY: PROX CIRC: eccentric, hazy, 85 % Stenosis OM 1: Ostial - 95 % Stenosis RIGHT CORONARY ARTERY: Mild luminal irregularities RT PLV: ostial: 85 % Stenosis (small caliber vessel) GRAFTS: QUINN graft to the Mid LAD is patent Saphenous Vein graft to the 1st Diagonal is totally occluded Saphenous Vein graft to the 1st OM is totally occluded Saphenous Vein graft to the RCA is totally occluded COLLATERAL FLOW: Collateral flow from Right to Left AORTIC ROOT: Angiographically normal COMPLICATIONS No Complications PROCEDURE MEDICATIONS Versed 1 mg IV Oxygen: 2 L/min via nasal cannula Heparin 6000 unit(s) IV 09/02/2019 09:29:53 Heparin 200 unit(s) IV 09/02/2019 10:04:52 SUMMARY OF HEMODYNAMIC DATA Time AIR REST ECG 08:29:14 AO 119/63 (86) SA 08:44:48 LV 131/-21, 9 09:13:41 LV 122/-18, 9 09:13:47 LV 127/-16, 14 09:14:39 LV 127/-21, 10 09:14:45 LVp 122/-20, 8 09:14:57 AOp 133/62 (92) 09:15:02 Signed By Charles Craft MD On 09/02/2019 17:49:00 Charles Craft MD
--- NOTE | 2019-09-02 18:25 | ECHOCS_ITS ---
Reason For Study: S/P [place] Procedure This was a 2D Doppler, Color Flow transthoracic echocardiogram. The study was technically difficult. Contrast injection was performed. Exam performed portable in ICU/CCU. Left Ventricle Normal LV size. Mild segmental systolic dysfunction (see wall motion). The estimated ejection fraction is 45 %. No evidence for diastolic dysfunction. Basal inferoseptal: Hypokinetic. Mid- Anterior : Hypokinetic. Mid-Lateral : Hypokinetic. Mid-inferoseptal : Hypokinetic. Mid- anteroseptal : Hypokinetic. Anterior [place] : Hypokinetic. Right Ventricle Normal RV size. Normal systolic function. Atria The left atrium is mildly enlarged. Normal right atrium. No doppler evidence for ASD. Mitral Valve There is no mitral annular calcification. Normal mitral valve. Mild (1+) mitral valve insufficiency. Tricuspid Valve Normal tricuspid valve. Mild tricuspid valve insufficiency. Right ventricular systolic pressure estimated to be 32 mmHg. Aortic Valve Trisinus/trileaflet aortic valve. Mild diffuse aortic valve thickening. Pulmonic Valve The pulmonic valve is not well visualized. Trivial pulmonic valve insufficiency. Great Vessels Normal sized aortic root. Pericardium/Pleural No pericardial effusion. Medication Diluted definity 3ml given slow IV push to enhance endocardial definition. MMode/2D Measurements & Calculations LVIDd: 5.4 cm IVSd: 1.0 cm Ao root diam: 3.8 cm LVIDs: 3.9 cm LVPWd: 1.1 cm RVDd: 2.9 cm FS: 26.5 % LAV(MOD-bp): 62.7 ml LA A4 area: 21.3 cm2 LA dimension(2D): 4.1 cm LAV(MOD-bp) Indexed: 28.6 ml/m2 LAV(MOD-sp2): 55.5 ml LAV(MOD-sp4): 60.5 ml RA A4 area: 15.6 cm2 Doppler Measurements & Calculations MV E max samm: 57.7 cm/sec Lat Peak E' Samm: 9.1 cm/sec Med Peak E' Samm: 5.9 cm/sec MV A max samm: 98.1 cm/sec E/E' lat: 6.3 E/E' med: 9.8 MV E/A: 0.59 Ao V2 max: 115.5 cm/sec LV V1 max: 97.9 cm/sec PA V2 max: 146.2 cm/sec Ao max P.4 mmHg LV V1 max P.9 mmHg TR max samm: 267.7 cm/sec TR max P.7 mmHg Interpretation Summary The study was technically difficult. Contrast injection was performed. Mild segmental systolic dysfunction (see wall motion). The estimated ejection fraction is 45 %. The left atrium is mildly enlarged. Mild (1+) mitral valve insufficiency. Mild tricuspid valve insufficiency. Mild diffuse aortic valve thickening. Trivial pulmonic valve insufficiency. Right ventricular systolic pressure estimated to be 32 mmHg. No evidence for diastolic dysfunction. Ordering Physician: Charles Craft Referring Physician: Charles Agosto Performed By: Nyla Hill MAGDA
[2019-09-02] MEDS: Atorvastatin Calcium 20 MG Tablet PO (22:45)
[2019-09-02 22:46] LABS: Bedside Glucose 248 mg/dL (70-110)
[2019-09-03] VITALS (21 sets, daily range): BP systolic 94–142; BP diastolic 62–82; PULSE 48–79; RESP 13–20; TEMP 36.3–37.1; O2SAT 92–99
[2019-09-03] MEDS: Nitroglycerin Oint 1 INCH PACKET TRANSDERM. ×2 (00:16→06:02)
[2019-09-03 06:33] LABS: Hematocrit 37.5 % (40-54); Mean Corp Hgb Conc 34.7 g/dL (32-36); Mean Corpuscular Hgb 29.6 pg (27.0-32.0); Mean Corpuscular Volume 85.4 fL (80-94); Mean Platelet Vol. 10.2 fl (6.2-12.0); Platelet Count 159 K/mm3 (150-450); RBC Distribution Width CV 13.1 % (11.6-14.6); RBC Distribution Width SD 40.5 fl (35.1-43.9); Red Blood Count 4.39 M/mm3 (4.6-6.2); White Blood Count 5.7 K/mm3 (4.4-11.0)
[2019-09-03 06:53] LABS: ALB/GLOB Ratio 1.2 RATIO (0.9-2.4); AST(SGOT) 47 U/L (15-37); Alanine Aminotransfer ALT/SGPT 49 U/L (16-61); Albumin, Serum 3.7 g/dL (3.2-5.0); Alkaline Phosphatase 28 U/L (45-117); Anion Gap 3 (5-15); BUN 16 mg/dL (7-18); BUN/Creat Ratio 15.2 RATIO (10-20); Calcium,Total 8.7 mg/dL (8.5-10.1); Chloride 108 mmol/L (98-107); Creatinine, Serum 1.05 mg/dL (0.70-1.30); EST Glomerular Filtration Rate 73 mL/min (>60); Est Glom Filt Rate - Afr Amer 88 mL/min (>60); Estimated Creatinine Clearance 70.42 ml/min; Globulin 3.2 g/dL (2.2-4.2); Glucose 202 mg/dL (74-106); Potassium 4.7 mmol/L (3.5-5.1); Protein, Total 6.9 g/dL (6.4-8.2); Sodium Level 139 mmol/L (136-145)
[2019-09-03] MEDS: Insulin Lispro 100 UNIT/ML INSULN.PEN SC ×4 (06:56→21:11)
[2019-09-03 07:36] LABS: Bedside Glucose 206 mg/dL (70-110)
[2019-09-03] MEDS: LINAGLIPTIN 5 MG TABLET PO (09:32)
[2019-09-03] MEDS: Metoprolol(XL)Succ 50 MG Tablet PO (09:32)
[2019-09-03] MEDS: Finasteride 5 MG Tablet PO (09:33)
[2019-09-03] MEDS: Aspirin E.C. 81 MG Tablet 162 MG PO (09:37)
[2019-09-03] MEDS: Isosorbide Mononitrate 30 MG Tablet PO (09:37)
[2019-09-03] MEDS: Pantoprazole Sodium 40 MG Tablet PO (09:37)
[2019-09-03] MEDS: Clopidogrel Bisulfate 75 MG Tablet PO (09:37)
--- NOTE | 2019-09-03 09:49 | PCM.PN.CARD ---
Subjectve: Patient states he is feeling better overall. He denies any ongoing episodes of chest discomfort or difficulty breathing. Objective: Vital Signs Temp Pulse Resp BP Pulse Ox 97.4 F L 72 13 142/76 H 97 09/03/19 06:54 09/03/19 09:32 09/03/19 06:54 09/03/19 09:32 09/03/19 07:58 Oxygen Flow Rate (L/min) 2 Oxygen Delivery Method Room Air Weight: 201 lb 0.985 oz Body Mass Index (BMI) 25.0 Intake and Output for Last 24 Hours 09/01/19 09/02/19 09/03/19 23:59 23:59 23:59 Intake Total 740 / 740 1471.95 / 1871.95 400 / 400 Output Total 1125 / 1525 900 / 900 Balance 740 / 740 346.95 / 346.95 -500 / -500 General: Awake, Alert, Oriented x 3, Cooperative, No Acute Distress HEENT: Atraumatic, Normocephalic, PERRL, EOMI, Sclera Non Icteric Neck: Supple, Good ROM, No JVD Lungs: Clear to auscultation Cardiovascular: Regular Rhythm, Premature Ectopic Beats, Normal S1, Normal S2 Vascular: Normal Femoral Pulses Abdomen: Bowel Sounds Present, Soft Extremities: No edema Neurological: No Focal Motor or Sensory Deficit Psych/Mental Status: Appropriate 09/03/19 06:25: WBC 5.7, RBC 4.39 L, Hgb 13.0, Hct 37.5 L, MCV 85.4, MCH 29.6, MCHC 34.7, Plt Count 159, MPV 10.2 09/03/19 06:25: Sodium 139, Potassium 4.7, Chloride 108 H, Carbon Dioxide 28.0, Anion Gap 3 L, BUN 16, Creatinine 1.05, Est GFR (MDRD) Af Amer 88, Est GFR (MDRD) Non-Af 73, BUN/Creatinine Ratio 15.2, Glucose 202 H, Calcium 8.7, Total Bilirubin 1.10 H Rhythm: Sinus rhythm; PACs EKG: Sinus rhythm; nonspecific ST/T wave abnormality ECHO: Interpretation Summary The study was technically difficult. Contrast injection was performed. Mild segmental systolic dysfunction (see wall motion). The estimated ejection fraction is 45 %. The left atrium is mildly enlarged. Mild (1+) mitral valve insufficiency. Mild tricuspid valve insufficiency. Mild diffuse aortic valve thickening. Trivial pulmonic valve insufficiency. Right ventricular systolic pressure estimated to be 32 mmHg. No evidence for diastolic dysfunction. Cardiac Cath: CONCLUSIONS Normal Left Ventricular End Diastolic Pressure Normal LV size, wall motion,and systolic function LVEF: by LV gram 55 % [place] Multivessel CAD QUINN to LAD: patent SVG to DX1: occluded SVG to OM1: occluded SVG to RPL: occluded Right to Left collateral flow RECOMMENDATIONS Risk factor modification Medical therapy Referred for immediate PCI (LCX/OM system) CORONARY ANGIOGRAPHY DOMINANCE: Right Dominant LEFT HEART ASSESSMENT Left Ventricular Ejection Fraction: by LV Gram 55 % Normal LV wall motion Normal Left Ventricular End Diastolic Pressure LVEDP: 9 mmHg LEFT MAIN: Angiographically normal LEFT ANTERIOR DESCENDING ARTERY: PROX LAD: Previously placed stent is occluded MID LAD: to distal: filling from the QUINN graft with distal serial 50 - 75 % Stenosis CIRCUMFLEX ARTERY: PROX CIRC: eccentric, hazy, 85 % Stenosis OM 1: Ostial - 95 % Stenosis RIGHT CORONARY ARTERY: Mild luminal irregularities RT PLV: ostial: 85 % Stenosis (small caliber vessel) GRAFTS: QUINN graft to the Mid LAD is patent Saphenous Vein graft to the 1st Diagonal is totally occluded Saphenous Vein graft to the 1st OM is totally occluded Saphenous Vein graft to the RCA is totally occluded COLLATERAL FLOW: Collateral flow from Right to Left AORTIC ROOT: Angiographically normal PCI: CONCLUSIONS Successful PCI with DION to the LCx/OM1 bifurcation (DION to OM1 and prox LCx and PTCA alone of the LCx distal to the origin of OM1). Medical Necessity - Tobacco Use Smoking Status: Never smoker Assessment/Plan 1. Non-ST segment elevation DC The patient does have findings compatible with a non-ST segment elevation DC. He is continuing medical management. He is undergone additional noninvasive and invasive studies. He is now also status post LCx/OM PTCA/DION. 2. CAD status post PCI status post CABG The patient has undergone evaluation in the past which is led to PCI of the LAD and subsequent CABG. He now presents with findings compatible with a non-ST segment elevation DC. He will continue to be monitored. He will continue medical therapy. He is now status post transthoracic echocardiogram and cardiac catheterization. His cardiac catheterization led to PCI/DION of the LCx/OM system. 3. Ischemic mediated cardiomyopathy Based upon his echocardiographic findings he does have left ventricular regional wall motion abnormalities and mildly diminished LV systolic function/LVEF. He will continue medical therapy. This will include a combination of his aspirin, nitrates, beta-blockers, and lipid-lowering agents. Unfortunately the patient did not tolerate PHILIPPE inhibitors in the past. He reports that he has a allergy which was a dry cough. He may be able to tolerate an ARB which may be beneficial to him based upon his diminished LV systolic function. 3. Hyperlipidemia The patient will continue risk factor evaluation and care. 4. Diabetes mellitus The patient will continue evaluation care per internal medicine. Overall, at the present time, the patient will continue medical management with adjustment as deemed appropriate. It appears he can be transferred from the ICU to the PCU. If he does well in the PCU then hopefully he can be released home in the near future for continued outpatient follow-up. : The patient's case was discussed and reviewed with Dr. Avina. This note was generated using a voice recognition system and there may be incorrect words, spelling or punctuation that were not noted when reviewing the office note prior to saving.
--- NOTE | 2019-09-03 09:59 | PN_ITS ---
Patient Problems: Active and Suspected Problems (Last Updated 09/01/19 @ 11:[address] Filomena Avina MD) NSTEMI (non-ST elevated myocardial infarction) (Acute) Subjective: Chief complaint: Follow-up after admission for acute non-ST elevation SC. Patient seen and examined. No acute events overnight. Today, he has no complai nts. No more chest pain. His vital signs are stable. - Physical Exam Vitals/I&O's: Vital Signs Temp Pulse Resp BP Pulse Ox 97.4 F L 72 13 142/76 H 97 09/03/19 06:54 09/03/19 09:32 09/03/19 06:54 09/03/19 09:32 09/03/19 07:58 Oxygen Flow Rate (L/min) 2 Oxygen Delivery Method Room Air Weight: 201 lb 0.985 oz Body Mass Index (BMI) 25.0 Intake and Output for Last 24 Hours 09/01/19 09/02/19 09/03/19 23:59 23:59 23:59 Intake Total 740 / 740 1471.95 / 1871.95 400 / 400 Output Total 1125 / 1525 900 / 900 Balance 740 / 740 346.95 / 346.95 -500 / -500 General: Alert, Oriented x3, Cooperative, No apparent distress HEENT: Atraumatic, PERRLA, EOMI, Normocephalic Oral: Moist Mucosa, No Gingival or Mucosal Lesions/ Ulcerations Neck: Supple, No JVD, Negative Carotid Bruits, Trachea Midline, Thyroid Normal Size and Texture Lungs: Clear to auscultation, Normal air movement, No rhonchi, No wheeze, No rales Cardiovascular: Regular rate, Regular Rhythm, Normal S1, Normal S2, PMI Normal Abdomen: Bowel Sounds Present, Soft, Non Tender, Non-Distended, No Hepato- splenomegaly Extremities: No clubbing, No cyanosis, No edema Skin: No rashes, No breakdown Lymphatic: No Cervical, Supraclavicular, or Inguinal Adenopathy Neurological: Cranial nerves II-XII grossly intact, Neuro grossly intact Psych/Mental Status: Normal Affect, Appropriate, Alert and oriented to time, place, person, mood and affect Laboratory Results 09/02/19 10:01: Activated Clotting Time 169 H 09/02/19 12:11: Activated Clotting Time 136 07/23/20 15:55: POC Glucose 174 H 09/02/19 22:35: POC Glucose 248 H 09/03/19 06:25: WBC 5.7, RBC 4.39 L, Hgb 13.0, Hct 37.5 L, MCV 85.4, MCH 29.6, MCHC 34.7, RDW Std Deviation 40.5, RDW Coeff of Aleks 13.1, Plt Count 159, MPV 10.2 09/03/19 06:25: Sodium 139, Potassium 4.7, Chloride 108 H, Carbon Dioxide 28.0, Anion Gap 3 L, BUN 16, Creatinine 1.05, Estim Creat Clear Calc 70.42, Est GFR (MDRD) Af Amer 88, Est GFR (MDRD) Non-Af 73, BUN/Creatinine Ratio 15.2, Glucose 202 H, Calcium 8.7, Total Bilirubin 1.10 H, AST 47 H, ALT 49, Alkaline Phosphatase 28 L, Total Protein 6.9, Albumin 3.7, Globulin 3.2, Albumin/Globulin Ratio 1.2 09/03/19 06:53: POC Glucose 206 H Current Medications Acetaminophen (Tylenol) 650 mg PO Q6H PRN PRN PRN Reason: Pain Score 1-10/Temp > 100.7 F Aspirin (Ecotrin) 162 mg PO DAILY@0800 [facility] Last Admin: 09/03/19 09:37 Dose: 162 mg Documented by: Atorvastatin Calcium (Lipitor) 20 mg PO QHS [facility] Last Admin: 09/02/19 22:45 Dose: 20 mg Documented by: Atropine Sulfate () 0.5 mg IV UD PRN PRN Reason: HR <50 bpm Clopidogrel Bisulfate (Plavix) 75 mg PO DAILY [facility] Last Admin: 09/03/19 09:37 Dose: 75 mg Documented by: Dextrose (D50w Syringe) 0 gm IV X1 PRN; Protocol PRN Reason: Hypoglycemia Fenofibrate (Tricor) 145 mg PO DAILY@0800 [facility] Last Admin: 09/02/19 16:11 Dose: 145 mg Documented by: Finasteride (Proscar) 5 mg PO DAILY [facility] Last Admin: 09/03/19 09:33 Dose: 5 mg Documented by: Glimepiride (Amaryl) 6 mg PO QAM@0800 [facility] Last Admin: 09/02/19 11:03 Dose: Not Given Documented by: Glucagon () 1 mg IM .X1 PRN PRN Reason: Hypoglycemia Heparin Sodium (Porcine) (Heparin Na) 0 unit IV UD PRN; Protocol Hydralazine HCl (Apresoline Iv) 10 mg IV Q8H PRN PRN PRN Reason: for SBP>160 Sodium Chloride () 1,000 mls @ 15 mls/hr IV .Q48H [facility] Last Infusion: 09/02/19 12:26 Dose: Infused Documented by: Insulin Human Lispro (Humalog Kwikpen (Bkc)) 0 unit SC ACHS [facility]; Protocol Last Admin: 09/03/19 06:56 Dose: 2 units Documented by: Isosorbide Mononitrate (Imdur) 30 mg PO DAILY [facility] Last Admin: 09/03/19 09:37 Dose: 30 mg Documented by: Labetalol HCl (Trandate) 5 mg IV X1 PRN PRN Reason: SBP > 160 when pulling sheath Linagliptin (Tradjenta) 5 mg PO DAILY [facility] Last Admin: 09/03/19 09:32 Dose: 5 mg Documented by: Losartan Potassium (Cozaar) 25 mg PO DAILY [facility] Metoprolol Succinate (Toprol Xl (Beta Katalina)) 50 mg PO DAILY [facility] Last Admin: 09/03/19 09:32 Dose: 50 mg Documented by: Nitroglycerin (Nitrostat) 0.4 mg SUBLINGUAL Q5M PRN PRN Reason: CARDIAC/CHEST PAIN Ondansetron HCl (Zofran) 4 mg IV Q8H PRN PRN PRN Reason: NAUSEA/VOMITING Pantoprazole Sodium (Protonix) 40 mg PO DAILY [facility] Last Admin: 09/03/19 09:37 Dose: 40 mg Documented by: Sodium Chloride () 10 - 40 ml IV UD PRN PRN Reason: SALINE FLUSH Sodium Chloride () 500 ml IV BOLUS PRN PRN Reason: VASO-VAGAL PROTOCOL Zolpidem Tartrate (Ambien (Generic)) 5 mg PO QHS PRN PRN PRN Reason: INSOMNIA Medical Necessity - Tobacco Use Smoking Status: Never smoker Assessment/Plan All Active Problems (Last Updated 09/01/19 @ 11:[address] Filomena Avina MD) NSTEMI (non-ST elevated myocardial infarction) (Acute) This is a 79 years old male patient presented to the emergency room because of chest pain and he is being admitted for evaluation. #1 Acute non-ST elevation SC: Status post cardiac catheterization, found to have 95% stenosis of the obtuse marginal, status post PTCA/DION to left circumflex/obtuse marginal artery. Patient has no more symptoms. He is on aspirin, statins, Plavix, isosorbide mononitrate and metoprolol. His vital signs are stable. Repeat CBC and BMP today were unremarkable. 2D echocardiogram revealed ejection fraction 45%, mild segmental systolic dysfunction, RVSP of 32. Plan to start him on losartan as he had a cough to ramipril. Cardiology on the case. Plan: Transfer to PCU, anticipate discharge home tomorrow. #2 CAD status post stents and CABG: Patient had CABG on May,. Underwent cardiac catheterization today, intervention performed as above. Plan to c ontinue aspirin, statins, TriCor, Plavix, nitrates, metoprolol and losartan. #3 type 2 diabetes mellitus: Blood sugar has been stable, continue ADA diet, Accu-Cheks, insulin sliding scale, continue glimepiride and sitagliptin, keep holding metformin. #4 hyperlipidemia: Continue rosuvastatin and fenofibric acid. #5 benign prostatic hypertrophy: Continue finasteride. #6 DVT prophylaxis: Subcu Lovenox. This note was generated with AimWith dictation software. It may contain incorrect words, spelling, and punctuation that were not noted in checking the note before signing. Inpatient E&M: 94509 Subs Hosp L2
--- NOTE | 2019-09-03 10:00 | EKG12_ITS ---
Test Reason : AM EKG Blood Pressure : / mmHG Vent. Rate : 063 BPM Atrial Rate : 063 BPM P-R Int : 204 ms QRS Dur : 096 ms QT Int : 446 ms P-R-T Axes : 038 045 106 degrees QTc Int : 456 ms Sinus rhythm with marked sinus arrhythmia Nonspecific ST and T wave abnormality Abnormal ECG When compared with ECG of 02-SEP-2019 10:47, MANUAL COMPARISON REQUIRED, DATA IS UNCONFIRMED Confirmed by JIGAR TURNER ([id number]), associate entertainment editor MIRIAM TALBOT ([id number]) on 09/06/2019 12:50:28 PM Referred By: EDDRA Confirmed By:JIGAR TURNER
[2019-09-03] MEDS: Fenofibrate 145 MG Tablet PO (10:28)
[2019-09-03] MEDS: Glimepiride 4 MG Tablet 6 MG PO (10:28)
[2019-09-03] MEDS: Losartan Potassium 25 MG Tablet PO (10:31)
--- NOTE | 2019-09-03 12:36 | CASEMGMT ---
RN CM Assessment Intro role of CM to patient in room. Patient is sitting in chair, awake, alert and oriented. Pt states he is independent and able to care for self. Discussed prescription for Plavix will be given on dc, and if 90 script is needed, can be written on f/u appointment and sent to his mail order pharmacy. No further questions. No concerns noted. PCP: Dr. Agosto Pharmacy: [facility] Benefit: yes Living arrangements: lives independently with DME: none HHC/SNF: none Pt's DC goal: home on discharge Discharge Plan: Home/ no needs identified. Contact CM for any dc needs that may arise. Sue HERMAN RN ACM
[2019-09-03 17:20] LABS: Bedside Glucose 198 mg/dL (70-110)
[2019-09-03 17:20] LABS: Bedside Glucose 312 mg/dL (70-110)
[2019-09-03] MEDS: Atorvastatin Calcium 20 MG Tablet PO (21:11)
[2019-09-03 21:36] LABS: Bedside Glucose 239 mg/dL (70-110)
[2019-09-04 03:03] VITALS: PULSE 66
[2019-09-04 03:05] VITALS: BP 127/72; PULSE 68; RESP 16; TEMP 36.8; O2SAT 94
[2019-09-04] MEDS: Insulin Lispro 100 UNIT/ML INSULN.PEN SC (06:43)
[2019-09-04 06:51] LABS: Bedside Glucose 196 mg/dL (70-110)
[2019-09-04 06:54] VITALS: PULSE 67
[2019-09-04 07:00] VITALS: O2SAT 97
[2019-09-04 08:49] VITALS: BP 151/80; PULSE 83; RESP 16; TEMP 37.1; O2SAT 95
[2019-09-04] MEDS: Glimepiride 4 MG Tablet 6 MG PO (08:55)
[2019-09-04] MEDS: Aspirin E.C. 81 MG Tablet 162 MG PO (08:55)
[2019-09-04] MEDS: Clopidogrel Bisulfate 75 MG Tablet PO (08:56)
[2019-09-04] MEDS: Pantoprazole Sodium 40 MG Tablet PO (08:56)
[2019-09-04] MEDS: Finasteride 5 MG Tablet PO (08:56)
[2019-09-04] MEDS: Losartan Potassium 25 MG Tablet PO (08:56)
[2019-09-04] MEDS: Isosorbide Mononitrate 30 MG Tablet PO (08:56)
[2019-09-04 08:57] VITALS: PULSE 83
[2019-09-04] MEDS: LINAGLIPTIN 5 MG TABLET PO (08:57)
[2019-09-04] MEDS: Metoprolol(XL)Succ 50 MG Tablet PO (08:57)
--- NOTE | 2019-09-04 09:06 | PCM.PN.CARD ---
Subjectve: Patient doing very well, complains of no chest pain. Right groin is clean/dry/intact without evidence of thrills, bruits or hematoma. The patient is ambulated throughout the hospital without difficulty or anginal symptoms. He is tolerating his medication adjustment well. Telemetry showed normal sinus rhythm with rare PVC. Objective: Vital Signs Temp Pulse Resp BP Pulse Ox 98.7 F 83 16 151/80 H 95 09/04/19 08:49 09/04/19 08:57 09/04/19 08:49 09/04/19 08:49 09/04/19 08:49 Oxygen Flow Rate (L/min) 2 Oxygen Delivery Method Room Air Weight: 200 lb 2.876 oz Body Mass Index (BMI) 25.0 Intake and Output for Last 24 Hours 09/02/19 09/03/19 09/04/19 23:59 23:59 23:59 Intake Total 1471.95 / 1871.95 625 / 625 300 / 300 Output Total 1125 / 1525 900 / 900 Balance 346.95 / 346.95 -275 / -275 300 / 300 General: Awake, Alert, Oriented x 3 HEENT: PERRL, EOMI, Sclera Non Icteric Neck: Supple, Good ROM, No Lymph Node Enlargement Lungs: Clear to auscultation Cardiovascular: Regular Rhythm, Normal S1, Normal S2, No Murmurs, No Rubs, No Gallops Vascular: No Carotid Bruits, Normal Femoral Pulses, Normal Radial Pulses, Normal Dorsalis Pedal Pulse, Normal Posterior Tibial Pulses Abdomen: Bowel Sounds Present, Soft, Non Tender, No HSM, No Organomegaly Extremities: No Cyanosis, No Clubbing, No edema Neurological: No Focal Motor or Sensory Deficit Rhythm: EKG: ECHO: Stress Test: Cardiac Cath: PCI: CT Surgery: Holter monitor: EPS: PPM: CXR: Chest CT Scan: Medical Necessity - Tobacco Use Smoking Status: Never smoker Assessment/Plan 1. Acute coronary syndrome: The patient presented with new onset anginal symptoms and underwent left her catheterization followed by angioplasty and stenting of his left circumflex segue into his obtuse marginal. Patient's and hypertensive medications were adjusted by Dr. Craft, and his blood pressure has improved. Recommend the patient continue his baby aspirin, Plavix, metoprolol and losartan. Patient be set up for cardiac rehab as an outpatient. At this point I believe the patient may be discharged home with follow-up with Dr. Craft per protocol. 2. Hyperlipidemia: Continue fenofibrate therapy. Repeat lipid profile after cardiac rehab is completed. 3. Thank you very much for the opportunity to participate in the cardiac care of your patient. Patient may be discharged home. Inpatient E&M: 58980 Subs Hosp L2
--- NOTE | 2019-09-04 09:11 | PCM.DC ---
- Discharge Diagnoses Current Active Problems: Current Active and Chronic Problems (Last Updated 09/02/19 @ 13:17 by Emani Yost) NSTEMI (non-ST elevated myocardial infarction) (Acute) CAD (coronary artery disease) (Chronic) S/P CABG (coronary artery bypass graft) (Chronic) You will use the following diet at home:: Calorie/Carbohydrate Controlled (specify 1200, 1400, etc) - 1800 roz., Cardiac Your food should be the consistency of: Regular Discharge Activity: Return to Normal Activity Weight Bearing Status: Weight bearing as tolerated Call your doctor if you observe: Fever of 101 or Higher, Shortness of breath, Dizziness, Fainting spells, Chest pain, Increased palpitations (irregular heartbeat), Uncontrolled pain Allergies/Adverse Reactions: Allergies cephalexin Allergy (Severe, Verified 09/01/19 10:22) Hives penicillin G Allergy (Severe, Verified 09/01/19 10:22) Hives ramipril [From Altace] Allergy (Severe, Verified 09/01/19 10:22) Dry Cough Medications to take at Discharge colchicine 0.6 mg tablet 0.6 mg PO QDAY PRN 05/06/17 metformin 1,000 mg tablet 1,000 mg PO BID 05/06/17 nitroglycerin 400 mcg/spray translingual 1 spray TRANSLINGUAL Q5M PRN 05/06/17 sitagliptin 100 mg tablet 100 mg PO QDAY 05/06/17 aspirin 81 mg tablet,delayed release 162 mg PO QDAY tab 06/26/17 finasteride 5 mg tablet 5 mg PO QDAY 06/26/17 pantoprazole 40 mg tablet,delayed release 40 mg PO DAILY #90 tab 09/01/17 fenofibric acid (choline) 135 mg capsule,delayed release 135 mg PO QDAY #90 cap 10/01/17 rosuvastatin 10 mg tablet 10 mg PO DAILY #90 tab 09/28/18 glimepiride 4 mg tablet 6 mg PO QAM tab 01/25/19 metoprolol succinate 50 mg tablet,extended release 24 hr 50 mg PO QDAY #90 tab 08/20/19 Clopidogrel Bisulfate [Plavix] 75 mg PO DAILY #90 tab 09/04/19 Isosorbide Mononitrate [Imdur] 30 mg PO DAILY #30 tab 09/04/19 Losartan Potassium [Cozaar] 25 mg PO DAILY #30 tab 09/04/19 The following prescriptions were given: Losartan Potassium [Cozaar] 25 mg PO DAILY #30 tab Transmission Status: Pending to [facility] ([place] #30 Isosorbide Mononitrate [Imdur] 30 mg PO DAILY #30 tab Transmission Status: Pending to [facility] ([place] #30 Clopidogrel Bisulfate [Plavix] 75 mg PO DAILY #90 tab Transmission Status: Pending to [facility] ([place] #30 Primary Care Physician: Charles Agosto MD [Primary Care Provider] - Please follow up with your Primary Care Physician in: 1 week. Test Results: Test results from this visit will be discussed in further detail at your follow-up appointment, if applicable. Please Follow Up With: Charles Craft MD When: 2-3 weeks.
--- NOTE | 2019-09-04 10:00 | EKG12_ITS ---
Test Reason : AM EKG Blood Pressure : / mmHG Vent. Rate : 065 BPM Atrial Rate : 065 BPM P-R Int : 194 ms QRS Dur : 096 ms QT Int : 440 ms P-R-T Axes : 034 043 106 degrees QTc Int : 457 ms Sinus rhythm with Premature atrial complexes Septal infarct , age undetermined Abnormal ECG When compared with ECG of 03-SEP-2019 04:13, MANUAL COMPARISON REQUIRED, DATA IS UNCONFIRMED Confirmed by JEB DAVIS, DEEJAY ([id number]), online content editor MIRIAM TALBOT ([id number]) on 09/08/2019 1:24:04 PM Referred By: DEDRA Confirmed By:DEEJAY RUSS MD
--- NOTE | 2019-09-04 12:37 | DS.PCM_ITS ---
Discharge Date and Diagnosis Date of Admission: 09/01/19 Date of Discharge: 09/04/19 - Primary Discharge Diagnosis Acute Problems: #1 acute non-ST elevation CT. #2 CAD, found to have new 95% stenosis of the obtuse marginal, status post PTCA/DION to left circumflex/obtuse marginal artery. - Secondary Discharge Diagnosis Chronic Problems: Chronic Problems (Last Updated 09/01/19 @ 11:[address] Filomena Avina MD) CAD (coronary artery disease) (Chronic) S/P CABG (coronary artery bypass graft) (Chronic) Aortocoronary bypass status (Chronic ~05/20/17) CABG x4-UQINN to LAD, SVG to high diagonal branch, SVG to Ramus Intermedius, SVG to the right post lateral branch 05/20/17 Presence of stent in coronary artery (Chronic ~09/02/19) PTCA of LAD 04/1993; PTCA/DION to prox LAD 05/30/04; Synergy MR DION to the LCx/OM1 bifurcation (DION to OM1 and prox LCx and PTCA alone of the LCx distal to the origin of OM1). 09/02/19 Atherosclerotic heart disease of [place] coronary artery without angina pectoris (Chronic) PTCA of LAD 04/1993; PTCA/DION to prox LAD 05/30/04 Old myocardial infarction (Chronic) Hyperlipidemia (Chronic) Type 2 diabetes mellitus (Chronic) Hospital Course and Treatment Imaging Results: Clinical Impression(s) from Imaging Studies Chest X-Ray 09/01/19 10:48 IMPRESSION: Degenerative changes, as described above. No demonstrated acute cardiopulmonary process. Electronically Signed: Benjy Batista MD at 11:15 EDT , Service support , Dr. Craft, Dr. Cabrera, cardiology. Procedures: 2-D Echocardiogram, Cardiac catheterization, EKG Summary of Care Provided: Patient seen and examined on the day of discharge and appeared to be stable to be discharged home. He denied any complaints. His vital signs were stable. The patient is a 79 year old M presented to the emergency room because of chest pain and he was admitted for evaluation. Initial EKG and troponin were negative. Later, patient developed elevated troponin and he developed acute non-ST elevation CT. Highest troponin was 2.93. Initially, he was given loading dose of aspirin and Plavix. Cardiology consulted and patient underwent cardiac catheterization, found to have 95% stenosis of the obtuse marginal artery status post PTCA/DION to left circumflex/obtuse marginal. Patient was kept on aspirin, statins, Plavix, isosorbide mononitrate and metoprolol and later, he was started on losartan. He had no more chest pain after the cardiac catheterization and stent placement. His vital signs remained stable. 2D echocardiogram revealed ejection fraction of 45%, mild segmental systolic dysfunction, RVSP of 32. With treatment, patient had no more symptoms. His vital signs remained stable. He ambulated without any more chest pain, denies shortness of breath, denied dizziness or lightheadedness. Patient discharged home in a stable condition, discharged on aspirin, Plavix, isosorbide mononitrate, losartan, metoprolol, statins, continued on his other previous medications, plan to follow-up with cardiology in 2 to 3 weeks, recommended follow-up with PCP in 1 week. - Physical Exam Vitals/I&O's: Vital Signs Temp Pulse Resp BP Pulse Ox 98.7 F 83 16 151/80 H 95 09/04/19 08:49 09/04/19 08:57 09/04/19 08:49 09/04/19 08:49 09/04/19 08:49 Oxygen Flow Rate (L/min) 2 Oxygen Delivery Method Room Air Weight: 200 lb 2.876 oz Body Mass Index (BMI) 25.0 Intake and Output for Last 24 Hours 09/02/19 09/03/19 09/04/19 23:59 23:59 23:59 Intake Total 1471.95 / 1871.95 625 / 625 300 / 300 Output Total 1125 / 1525 900 / 900 Balance 346.95 / 346.95 -275 / -275 300 / 300 General: Alert, Oriented x3, Cooperative, No apparent distress HEENT: Atraumatic, PERRLA, EOMI, Normocephalic Oral: Moist Mucosa, No Gingival or Mucosal Lesions/ Ulcerations Neck: Supple, No JVD, Negative Carotid Bruits, Trachea Midline, Thyroid Normal Size and Texture Lungs: Clear to auscultation, Normal air movement, No rhonchi, No wheeze, No rales Cardiovascular: Regular rate, Regular Rhythm, Normal S1, Normal S2, PMI Normal Abdomen: Bowel Sounds Present, Soft, Non Tender, Non-Distended, No Hepato- splenomegaly Extremities: No clubbing, No cyanosis, No edema Skin: No rashes, No breakdown Lymphatic: No Cervical, Supraclavicular, or Inguinal Adenopathy Neurological: Cranial nerves II-XII grossly intact, Neuro grossly intact Psych/Mental Status: Normal Affect, Appropriate Laboratory Results 09/03/19 11:31: POC Glucose 312 H 09/03/19 16:26: POC Glucose 198 H 09/03/19 21:07: POC Glucose 239 H 09/04/19 06:42: POC Glucose 196 H Discharge Activity: Return to Normal Activity Weight Bearing Status: Weight bearing as tolerated Call your doctor if you observe: Fever of 101 or Higher, Shortness of breath, Dizziness, Fainting spells, Chest pain, Increased palpitations (irregular heartbeat), Uncontrolled pain Home Medications: Medications to take at Discharge colchicine 0.6 mg tablet 0.6 mg PO QDAY PRN 05/06/17 metformin 1,000 mg tablet 1,000 mg PO BID 05/06/17 nitroglycerin 400 mcg/spray translingual 1 spray TRANSLINGUAL Q5M PRN 05/06/17 sitagliptin 100 mg tablet 100 mg PO QDAY 05/06/17 aspirin 81 mg tablet,delayed release 162 mg PO QDAY tab 06/26/17 finasteride 5 mg tablet 5 mg PO QDAY 06/26/17 pantoprazole 40 mg tablet,delayed release 40 mg PO DAILY #90 tab 09/01/17 fenofibric acid (choline) 135 mg capsule,delayed release 135 mg PO QDAY #90 cap 10/01/17 rosuvastatin 10 mg tablet 10 mg PO DAILY #90 tab 09/28/18 glimepiride 4 mg tablet 6 mg PO QAM tab 01/25/19 metoprolol succinate 50 mg tablet,extended release 24 hr 50 mg PO QDAY #90 tab 08/20/19 Clopidogrel Bisulfate [Plavix] 75 mg PO DAILY #90 tab 09/04/19 Isosorbide Mononitrate [Imdur] 30 mg PO DAILY #30 tab 09/04/19 Losartan Potassium [Cozaar] 25 mg PO DAILY #30 tab 09/04/19 Following Prescrptions Were Given to Patient: Losartan Potassium [Cozaar] 25 mg PO DAILY #30 tab Transmission Status: Received by [facility] #30 Isosorbide Mononitrate [Imdur] 30 mg PO DAILY #30 tab Transmission Status: Received by [facility] #30 Clopidogrel Bisulfate [Plavix] 75 mg PO DAILY #90 tab Transmission Status: Received by [facility] #30 Primary Care Physician: Charles Agosto MD [Primary Care Provider] - Please follow up with your Primary Care Physician in: 1 week. Please Follow Up With: Charles Craft MD When: 2-3 weeks. Please Follow Up With: Charles Agosto MD Disposition: Home Minutes spent on discharge:: 32 Patient Condition:: Stable Medical Necessity - Tobacco Use Smoking Status: Never smoker Meaningful Use Info Meaningful Use Diagnoses (Choose all that apply): AMI - AMI/Post PCI/Angioplasty Aspirin given w/in 24hrs of arrival?: Yes ASA at discharge?: Yes Antiplatelet Therapy at Discharge:: Yes Statins at discharge?: Yes Blaze/ARB at discharge?: Yes Beta Katalina at discharge?: Yes Done w/ Acute CT measure.: Yes Documented LVEF (%): 45 Inpatient E&M: 74906 Disch Hosp
--- NOTE | 2019-09-06 14:06 | CASEMGMT ---
JAGDISH CM DC PHONE CALL DC DATE: 09/04/2019 DC DISPOSITION: Home DC DIAGNOSIS: NSTEMI LACE/STRATA: 11/12 F/U APPTS MADE PRIOR TO DC: yes PRESCRIPTIONS ACQUIRED BY PT: yes Intro role of CM to patient via phone. Pt states he is doing well. No questions re: dc instructions, prescriptions or f/u. No care improvement suggestions given. Sue HERMAN RN ACM
== END 2019-09-04 10:45 | disposition home or self-care (01) | DRG 247 ==
LOC: ED 11:10 → PCU 11:58 → ICU 09-02 11:46 → PCU 09-03 11:00
PROVIDERS: Hospitalist; Specialist; Admitting Provider Hospitalist; Emergency Provider Emergency Medicine; PCP Family Medicine; Visit Provider Hospitalist
DX: I21.4 Non-ST elevation (NSTEMI) myocardial infarction (principal); I25.10 Atherosclerotic heart disease of native coronary artery without angina pectoris; Z95.1 Presence of aortocoronary bypass graft; E78.5 Hyperlipidemia, unspecified; E11.9 Type 2 diabetes mellitus without complications; I25.2 Old myocardial infarction; Z87.891 Personal history of nicotine dependence; N40.0 Benign prostatic hyperplasia without lower urinary tract symptoms; M19.90 Unspecified osteoarthritis, unspecified site; I25.5 Ischemic cardiomyopathy
CPT/HCPCS: 36415; 71045; 80048; 80053; 82962; 84484; 85025; 85027; 85347; 85610; 85730; 92928; 93005; 93306; 93459; 93567; 99152; 99153; 99285; J7030; Q9957; Q9967; A4216; C1725; C1769; C1887; C1894; C8929; C9600

== ENCOUNTER → 2020-06-05 09:22 | Outpatient (CLI) | payer MEDICARE, OTHER, SELFPAY ==
[2020-03-24 10:09] VITALS: BMI 25.0
[2020-06-05 10:43] LABS: ALB/GLOB Ratio 1.3 RATIO (0.9-2.4); AST(SGOT) 31 U/L (15-37); Alanine Aminotransfer ALT/SGPT 42 U/L (16-61); Albumin, Serum 3.9 g/dL (3.2-5.0); Alkaline Phosphatase 25 U/L (45-117); Anion Gap 7 (5-15); BUN 24 mg/dL (7-18); BUN/Creat Ratio 21.8 RATIO (10-20); Calcium,Total 8.9 mg/dL (8.5-10.1); Chloride 105 mmol/L (98-107); Cholesterol 125 mg/dL (200); EST Glomerular Filtration Rate 69 mL/min (>60); Est Glom Filt Rate - Afr Amer 83 mL/min (>60); Globulin 3.1 g/dL (2.2-4.2); Glucose 185 mg/dL (74-106); High Density Lipoprotein 43 mg/dL; Potassium 4.1 mmol/L (3.5-5.1); Sodium Level 138 mmol/L (136-145); Triglycerides 136 mg/dL; Very Low Density Lipoprotein 27 mg/dL (5-40)
== END ==
PROVIDERS: PCP Family Medicine; Referring Provider Family Medicine; Visit Provider Family Medicine
DX: E78.5 Hyperlipidemia, unspecified (principal)
CPT/HCPCS: 36415; 80053; 80061

== ENCOUNTER → 2020-07-21 | Outpatient (CLI) | payer MEDICARE, OTHER, SELFPAY ==
[2020-03-24 10:09] VITALS: BMI 25.0
== END | disposition home or self-care (01) ==
PROVIDERS: PCP Family Medicine; Referring Provider Family Medicine; Visit Provider Family Medicine
DX: R30.0 Dysuria (principal)
CPT/HCPCS: 87086; 87088; 87186

== ENCOUNTER → 2020-12-06 08:32 | Outpatient (CLI) | payer MEDICARE, OTHER, SELFPAY ==
[2020-12-06 10:26] LABS: Anion Gap 7 (5-15); BUN 21 mg/dL (7-18); BUN/Creat Ratio 19.4 RATIO (10-20); Chloride 105 mmol/L (98-107); Cholesterol 136 mg/dL (200); Creatinine, Serum 1.08 mg/dL (0.70-1.30); EST Glomerular Filtration Rate 70 mL/min (>60); Est Glom Filt Rate - Afr Amer 85 mL/min (>60); Glucose 186 mg/dL (74-106); High Density Lipoprotein 39 mg/dL; Potassium 3.9 mmol/L (3.5-5.1); Sodium Level 139 mmol/L (136-145); Triglycerides 130 mg/dL; Very Low Density Lipoprotein 26 mg/dL (5-40)
== END ==
PROVIDERS: PCP Family Medicine; Referring Provider Family Medicine; Visit Provider Family Medicine
DX: E11.9 Type 2 diabetes mellitus without complications (principal)
CPT/HCPCS: 36415; 80048; 80061

== ENCOUNTER → 2021-06-07 | Outpatient (CLI) | payer MEDICARE, OTHER, SELFPAY ==
[2021-06-07 10:24] LABS: Anion Gap 7 (5-15); BUN 24 mg/dL (7-18); BUN/Creat Ratio 22.9 RATIO (10-20); Calcium,Total 9.1 mg/dL (8.5-10.1); Chloride 107 mmol/L (98-107); Cholesterol 124 mg/dL (200); Creatinine, Serum 1.05 mg/dL (0.70-1.30); EST Glomerular Filtration Rate 72 mL/min (>60); Est Glom Filt Rate - Afr Amer 88 mL/min (>60); Glucose 191 mg/dL (74-106); High Density Lipoprotein 37 mg/dL; Potassium 4.3 mmol/L (3.5-5.1); Sodium Level 139 mmol/L (136-145); Triglycerides 142 mg/dL; Very Low Density Lipoprotein 28 mg/dL (5-40)
== END | disposition home or self-care (01) ==
LOC: MFPLAB 09:01
PROVIDERS: PCP Family Medicine; Referring Provider Family Medicine; Visit Provider Family Medicine
DX: E11.9 Type 2 diabetes mellitus without complications (principal)
CPT/HCPCS: 36415; 80048; 80061

== ENCOUNTER → 2022-03-25 | Outpatient (CLI) | payer MEDICARE, OTHER, SELFPAY ==
[2022-03-25 12:52] LABS: Anion Gap 8 (5-15); BUN 27 mg/dL (7-18); BUN/Creat Ratio 24.8 RATIO (10-20); Calcium,Total 9.2 mg/dL (8.5-10.1); Chloride 105 mmol/L (98-107); Cholesterol 115 mg/dL (200); Creatinine, Serum 1.09 mg/dL (0.70-1.30); EST Glomerular Filtration Rate 69 mL/min (>60); Est Glom Filt Rate - Afr Amer 84 mL/min (>60); Glucose 173 mg/dL (74-106); High Density Lipoprotein 40 mg/dL; Potassium 4.5 mmol/L (3.5-5.1); Sodium Level 138 mmol/L (136-145); Triglycerides 112 mg/dL; Very Low Density Lipoprotein 22 mg/dL (5-40)
== END | disposition home or self-care (01) ==
PROVIDERS: PCP Family Medicine; Referring Provider Family Medicine; Visit Provider Family Medicine
DX: E11.9 Type 2 diabetes mellitus without complications (principal)
CPT/HCPCS: 36415; 80048; 80061

== ENCOUNTER → 2022-10-03 | Outpatient (CLI) | payer MEDICARE, OTHER, SELFPAY ==
[2022-10-03 11:05] LABS: Anion Gap 6 (5-15); BUN 20 mg/dL (7-18); BUN/Creat Ratio 20.9 RATIO (10-20); Chloride 108 mmol/L (98-107); Cholesterol 107 mg/dL (200); Creatinine, Serum 0.96 mg/dL (0.70-1.30); EST Glomerular Filtration Rate 80 mL/min (>60); Est Glom Filt Rate - Afr Amer 97 mL/min (>60); Glucose 120 mg/dL (74-106); High Density Lipoprotein 49 mg/dL; Potassium 3.9 mmol/L (3.5-5.1); Sodium Level 140 mmol/L (136-145); Triglycerides 89 mg/dL; Very Low Density Lipoprotein 18 mg/dL (5-40)
== END | disposition home or self-care (01) ==
LOC: MFPLAB 09:10
PROVIDERS: PCP Family Medicine; Visit Provider Family Medicine
DX: E11.65 Type 2 diabetes mellitus with hyperglycemia (principal)
CPT/HCPCS: 36415; 80048; 80061

== ENCOUNTER → 2023-07-15 | Outpatient (CLI) | payer MEDICARE, OTHER, SELFPAY ==
[2023-07-15 12:49] LABS: ALB/GLOB Ratio 1.3 RATIO (0.9-2.4); AST(SGOT) 20 U/L (15-37); Alanine Aminotransfer ALT/SGPT 26 U/L (16-61); Albumin, Serum 3.8 g/dL (3.2-5.0); Alkaline Phosphatase 28 U/L (45-117); Anion Gap 6 (5-15); BUN 24 mg/dL (7-18); Calcium,Total 9.3 mg/dL (8.5-10.1); Chloride 109 mmol/L (98-107); Cholesterol 114 mg/dL (200); Creatinine, Serum 0.83 mg/dL (0.70-1.30); EST Glomerular Filtration Rate 95 mL/min (>60); Est Glom Filt Rate - Afr Amer 114 mL/min (>60); Globulin 2.9 g/dL (2.2-4.2); Glucose 89 mg/dL (74-106); High Density Lipoprotein 44 mg/dL; Protein, Total 6.7 g/dL (6.4-8.2); Sodium Level 139 mmol/L (136-145); Triglycerides 83 mg/dL; Very Low Density Lipoprotein 17 mg/dL (5-40)
[2023-07-18 18:19] LABS: Microalbumin,Random Urine 21.1 mg/L (NO RANGE EST.); Microalbumin:Creatinine Ratio 37.5 mg/g CRE (<30 mg/g CRE)
== END | disposition home or self-care (01) ==
LOC: MFPLAB 09:28
PROVIDERS: PCP Family Medicine; Visit Provider Family Medicine
DX: E11.9 Type 2 diabetes mellitus without complications (principal)
CPT/HCPCS: 36415; 80053; 80061; 82043; 82570

== ENCOUNTER → 2024-01-07 | Outpatient (CLI) | payer MEDICARE, OTHER, SELFPAY ==
[2024-01-07 12:38] LABS: ALB/GLOB Ratio 1.4 RATIO (0.9-2.4); AST(SGOT) 24 U/L (15-37); Alanine Aminotransfer ALT/SGPT 30 U/L (16-61); Alkaline Phosphatase 34 U/L (45-117); Anion Gap 6 (5-15); BUN 23 mg/dL (7-18); BUN/Creat Ratio 24.4 RATIO (10-20); Chloride 107 mmol/L (98-107); Cholesterol 113 mg/dL (200); Creatinine, Serum 0.94 mg/dL (0.70-1.30); EST Glomerular Filtration Rate 82 mL/min (>60); Est Glom Filt Rate - Afr Amer 99 mL/min (>60); Globulin 2.8 g/dL (2.2-4.2); Glucose 145 mg/dL (74-106); High Density Lipoprotein 43 mg/dL; Potassium 4.1 mmol/L (3.5-5.1); Protein, Total 6.8 g/dL (6.4-8.2); Sodium Level 138 mmol/L (136-145); Triglycerides 101 mg/dL; Very Low Density Lipoprotein 20 mg/dL (5-40)
== END | disposition home or self-care (01) ==
LOC: MFPLAB 08:56
PROVIDERS: PCP Family Medicine; Visit Provider Family Medicine
DX: E78.5 Hyperlipidemia, unspecified (principal)
CPT/HCPCS: 36415; 80053; 80061

== ENCOUNTER → 2024-07-14 | Outpatient (CLI) | payer MEDICARE, OTHER, SELFPAY ==
[2024-07-14 10:40] LABS: ALB/GLOB Ratio 1.9 RATIO (0.9-2.4); AST(SGOT) 33 U/L (<=37); Alanine Aminotransfer ALT/SGPT 29 U/L (<=46); Albumin, Serum 4.3 g/dL (3.4-4.8); Alkaline Phosphatase 31 U/L (40-129); Anion Gap 13 (5-15); BUN 20 mg/dL (4-19); Calcium,Total 9.5 mg/dL (7.6-11.0); Carbon Dioxide 21.9 mmol/L (21.0-32.0); Chloride 102 mmol/L (98-108); Cholesterol 118 mg/dL (<=200); Creatinine, Serum 1.06 mg/dL (0.70-1.20); EST Glomerular Filtration Rate 70 (>60); Globulin 2.3 g/dL (2.2-4.2); Glucose 156 mg/dL (70-99); High Density Lipoprotein 37 mg/dL; Low Density Lipoprotein Calc. 62 mg/dL; Potassium 4.4 mmol/L (3.3-5.1); Protein, Total 6.7 g/dL (5.9-8.4); Sodium Level 137 mmol/L (133-145); Total Bilirubin 0.95 mg/dL (0.00-1.30); Triglycerides 95 mg/dL; Very Low Density Lipoprotein 19 mg/dL (5-40); cholesterol:hdl ratio screen 3.17
[2024-07-14 11:15] LABS: Microalbumin,Random Urine 21.4 mg/L (NO RANGE EST.); Microalbumin:Creatinine Ratio 314.7 mg/g CRE
== END | disposition home or self-care (01) ==
LOC: MFPLAB 08:54
PROVIDERS: PCP Family Medicine; Referring Provider Family Medicine; Visit Provider Family Medicine
DX: E11.9 Type 2 diabetes mellitus without complications (principal)
CPT/HCPCS: 36415; 80053; 80061; 82043; 82570

== ENCOUNTER → 2024-10-14 | Outpatient (CLI) | payer MEDICARE, OTHER, SELFPAY ==
[2024-10-14 13:25] LABS: AST(SGOT) 23 U/L (<=37); Alanine Aminotransfer ALT/SGPT 22 U/L (<=46); Albumin, Serum 4.3 g/dL (3.4-4.8); Alkaline Phosphatase 29 U/L (40-129); Anion Gap 12 (5-15); BUN 26 mg/dL (4-19); BUN/Creat Ratio 28.6 RATIO (10-20); Calcium,Total 9.7 mg/dL (7.6-11.0); Carbon Dioxide 22.2 mmol/L (21.0-32.0); Chloride 105 mmol/L (98-108); Cholesterol 119 mg/dL (<=200); Globulin 2.3 g/dL (2.2-4.2); Glucose 108 mg/dL (70-99); Low Density Lipoprotein Calc. 57 mg/dL; PSA,Total - Annual Screen 0.75 ng/mL (0.02-4.00); Potassium 4.3 mmol/L (3.3-5.1); Triglycerides 129 mg/dL; Very Low Density Lipoprotein 26 mg/dL (5-40); cholesterol:hdl ratio screen 3.30
== END | disposition home or self-care (01) ==
LOC: MFPLAB 09:41
PROVIDERS: PCP Family Medicine; Visit Provider Family Medicine
DX: R97.20 Elevated prostate specific antigen [PSA] (principal); E11.9 Type 2 diabetes mellitus without complications; Z12.5 Encounter for screening for malignant neoplasm of prostate
CPT/HCPCS: 36415; 80053; 80061; 84153; G0103